=== PATIENT | female | born 1990 | race African-American/Black ===

== ENCOUNTER 2019-06-19 08:21 | Emergency (ER) | payer SELFPAY ==
[2019-06-19 09:17] LABS: Urine Blood TRACE (NEG); Urine Glucose NEGATIVE (NEG); Urine Protein NEGATIVE (NEG); Urine Specific Gravity 1.025 (1.005-1.030); Urine pH 5.5 (5.0-7.0)
[2019-06-19 10:01] LABS: Urine Bacteria LOADED /HPF (<20)
[2019-06-19 10:02] LABS: Urine Culture Reflex Order REFLEXED
--- NOTE | 2019-06-19 10:35 | ER ---
Nurse's Notes [facility] Name: Marva De Santiago Age: 28 yrs Sex: Female : 1990 Arrival Date: 06/19/2019 Time: 08:23 Bed 16 Private MD: Diagnosis: Urinary tract infection, site not specified Presentation: 06/19 08:36 Presenting complaint: Patient states: vaginal pain radiating to rectum X 2 days, sharp, iw intermittent, denies vaginal bleeding or discharge, denies pain or burning with urination. Transition of care: patient was not received from another setting of care. Onset of symptoms was June 17, 2019. Risk Assessment: Do you want to hurt yourself or someone else? Patient reports no desire to harm self or others. Initial Sepsis Screen: Does the patient meet any 2 criteria? No. Patient's initial sepsis screen is negative. Does the patient have a suspected source of infection? No. Patient's initial sepsis screen is negative. Care prior to arrival: None. 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 - Social history:: Smoking status: Patient/guardian denies using tobacco. - Ebola Screening: : Patient negative for fever greater than or equal to 101.5 degrees Fahrenheit, and additional compatible Ebola Virus Disease symptoms Patient denies exposure to infectious person Patient denies travel to an Ebola-affected area in the 21 days before illness onset No symptoms or risks identified at this time. Screenin:33 Abuse screen: Denies threats or abuse. Denies injuries from another. Nutritional hb screening: No deficits noted. Tuberculosis screening: No symptoms or risk factors identified. Fall Risk None identified. Assessment: 08:45 General: Appears in no apparent distress. Behavior is calm, cooperative. Pain: Pain hb currently is 4 out of 10 on a pain scale. Neuro: Level of Consciousness is awake, alert, obeys commands, Oriented to person, place, time, situation. Cardiovascular: Capillary refill < 3 seconds Patient's skin is warm and dry. Respiratory: Airway is patent Respiratory effort is even, unlabored, Respiratory pattern is regular, symmetrical. GI: No signs and/or symptoms were reported involving the gastrointestinal system. : Reports vaginal pain. EENT: No signs and/or symptoms were reported regarding the EENT system. Derm: Skin is intact, is healthy with good turgor. Musculoskeletal: No signs and/or symptoms reported regarding the musculoskeletal system. 09:45 Reassessment: Patient appears in no apparent distress at this time. Patient and/or hb family updated on plan of care and expected duration. Pain level reassessed. Patient is alert, oriented x 3, equal unlabored respirations, skin warm/dry/pink. Patient states symptoms have improved. 10:45 Reassessment: Patient appears in no apparent distress at this time. Patient is alert, ca1 oriented x 3, equal unlabored respirations, skin warm/dry/pink. Pt refused Rocephin IM. Explained benefits of the antibiotic, pt still refused, said she's afraid of shots. Notified provider. Vital Signs: 08:36 BP 125 / 78; Pulse 88; Resp 16; Temp 97.6(TE); Pulse Ox 98% on R/A; Weight 190.51 kg; iw Height 5 ft. 10 in. (177.80 cm); 09:58 BP 134 / 93; Pulse 84; Resp 17 S; Pulse Ox 98% on R/A; ca1 08:36 Body Mass Index 60.26 (190.51 kg, 177.80 cm) iw ED Course: 08:23 Patient arrived in ED. rg4 08:30 Nadeem Verdugo NP is PHCP. pm1 08:30 Philippe Stewart MD is Attending Physician. pm1 08:31 Pari Cai, MAXINE is Primary Nurse. hb 08:33 Arm band placed on. hb 08:37 Triage completed. iw 08:45 Patient has correct armband on for positive identification. Bed in low position. Call hb light in reach. Side rails up X 1. 09:40 Assist provider with pelvic exam:. hb 10:55 Patient did not have IV access during this emergency room visit. ca1 Administered Medications: 10:45 Drug: AZITHromycin 1 grams Route: PO; ca1 10:53 Follow up: Response: Medication administered at discharge. ca1 10:54 Not Given (Patient Refused): Rocephin (cefTRIAXone) 1 grams IM once ca1 Outcome: 10:34 Discharge ordered by MD. pm1 10:55 Discharged to home ambulatory. ca1 10:55 Condition: stable 10:55 Discharge instructions given to patient, Instructed on discharge instructions, follow up and referral plans. medication usage, safe sex practices, Demonstrated understanding of instructions, follow-up care, medications, Prescriptions given X 1. 10:56 Patient left the ED. ca1 Signatures: Gregoria Jacobo, MAXINE RN iw Nadeem Verdugo NP NAPPER TENDER pm1 Pari Cai, RN RN Yasmeen Keyes rg4 Melissa Benítez RN RN ca1
--- NOTE | 2019-06-19 10:35 | EDPHYS ---
Physician Documentation [facility] Name: Marva De Santiago Age: 28 yrs Sex: Female : 1990 Arrival Date: 06/19/2019 Time: 08:23 Bed 16 Private MD: ED Physician Philippe Stewart HPI: 06/19 10:09 This 28 yrs old Black Female presents to ER via Ambulatory with complaints of Vaginal pm1 Pain, Rectal Pain. 10:09 The patient presents with Vaginal pain. Onset: The symptoms/episode began/occurred pm1 yesterday, last occurrence last night. Modifying factors: The symptoms are alleviated by nothing, the symptoms are aggravated by nothing. Associated signs and symptoms: Pertinent negatives: constipation, cramping, dysuria, fever, nausea, vaginal bleeding, vaginal discharge, vomiting. Severity of symptoms: in the emergency department the symptoms have resolved, since last night. The patient is sexually active. The patient's method of control includes nothing. The patient has not experienced similar symptoms in the past. The patient has not recently seen a physician. 10:09 No rectal bleeding or pain with bowel movements. Patient was sitting last night pm1 watching TV and felt a cramping pain in her vaginal area. 10:09 Patient had intercourse last night after vaginal pain without any pain or issues. 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 - Social history:: Smoking status: Patient/guardian denies using tobacco. - Ebola Screening: : Patient negative for fever greater than or equal to 101.5 degrees Fahrenheit, and additional compatible Ebola Virus Disease symptoms Patient denies exposure to infectious person Patient denies travel to an Ebola-affected area in the 21 days before illness onset No symptoms or risks identified at this time. ROS: 16:12 Positive for vaginal pain, Negative for urinary symptoms, flank pain, burning with pm1 urination, vaginal bleeding, vaginal discharge, vaginal itching. 16:12 Constitutional: Negative for fever, chills, and weight loss, Eyes: Negative for injury, pain, redness, and discharge, ENT: Negative for injury, pain, and discharge, Neck: Negative for injury, pain, and swelling, Cardiovascular: Negative for chest pain, palpitations, and edema, Respiratory: Negative for shortness of breath, cough, wheezing, and pleuritic chest pain, Abdomen/GI: Negative for abdominal pain, nausea, vomiting, diarrhea, and constipation, Back: Negative for injury and pain, MS/Extremity: Negative for injury and deformity, Skin: Negative for injury, rash, and discoloration, Neuro: Negative for headache, weakness, numbness, tingling, and seizure. Exam: 10:09 Constitutional: This is a well developed, well nourished patient who is awake, alert, pm1 and in no acute distress. Head/Face: Normocephalic, atraumatic. Neck: Trachea midline, no thyromegaly or masses palpated, and no cervical lymphadenopathy. Supple, full range of motion without nuchal rigidity, or vertebral point tenderness. No Meningismus. Chest/axilla: Normal chest wall appearance and motion. Nontender with no deformity. No lesions are appreciated. Cardiovascular: Regular rate and rhythm with a normal S1 and S2. No gallops, murmurs, or rubs. Normal PMI, no JVD. No pulse deficits. Respiratory: Lungs have equal breath sounds bilaterally, clear to auscultation and percussion. No rales, rhonchi or wheezes noted. No increased work of breathing, no retractions or nasal flaring. 10:09 Back: No spinal tenderness. No costovertebral tenderness. Full range of motion. Skin: Warm, dry with normal turgor. Normal color with no rashes, no lesions, and no evidence of cellulitis. MS/ Extremity: Pulses equal, no cyanosis. Neurovascular intact. Full, normal range of motion. 10:09 Abdomen/GI: Inspection: obese Bowel sounds: normal, Palpation: abdomen is soft and non-tender, in all quadrants, mass, is not appreciated, rebound tenderness, is not appreciated. 10:09 : Pelvic Exam: External exam: is normal, no appreciated Bartholin's cyst, no erythema, not excoriated, no evidence of foreign body, no lesions, no ulcerations, no warts seen, Speculum exam: no bleeding is noted, no cervicitis, no tissue in cervix is seen, no tissue in vagina is seen, bimanual exam reveals no cervical motion tenderness, no uterine tenderness, no adnexa tenderness or masses bilaterally, discharge, Pari bedoya RN. Sexual behavior: the patient is sexually active, method of control is none. 10:09 Neuro: Orientation: is normal, Motor: is normal, moves all fours, Gait: is steady, at a normal pace, without difficulty. Vital Signs: 08:36 BP 125 / 78; Pulse 88; Resp 16; Temp 97.6(TE); Pulse Ox 98% on R/A; Weight 190.51 kg; iw Height 5 ft. 10 in. (177.80 cm); 09:58 BP 134 / 93; Pulse 84; Resp 17 S; Pulse Ox 98% on R/A; ca1 08:36 Body Mass Index 60.26 (190.51 kg, 177.80 cm) iw MDM: 08:39 Patient medically screened. pm1 10:04 Data reviewed: vital signs. Data interpreted: Pulse oximetry: on room air is 98 %. pm1 Interpretation: normal. 10:34 Counseling: I had a detailed discussion with the patient and/or guardian regarding: the pm1 historical points, exam findings, and any diagnostic results supporting the discharge/admit diagnosis, lab results, the need for outpatient follow up, to return to the emergency department if symptoms worsen or persist or if there are any questions or concerns that arise at home. 06/19 08:56 Order name: Urine Microscopic Only; Complete Time: 10:04 hb 06/19 08:58 Order name: Urine Dipstick--Ancillary (enter results); Complete Time: 09:40 bd 06/19 08:58 Order name: Urine --Ancillary (enter results); Complete Time: 09:40 bd 06/19 09:54 Order name: Wet Prep; Complete Time: 10:28 iw 06/19 09:54 Order name: GC Probe iw 06/19 10:05 Order name: Urine Culture EDMS 06/19 08:43 Order name: Pelvic Exam Setup; Complete Time: 09:00 pm1 Administered Medications: 10:45 Drug: AZITHromycin 1 grams Route: PO; ca1 10:53 Follow up: Response: Medication administered at discharge. ca1 10:54 Not Given (Patient Refused): Rocephin (cefTRIAXone) 1 grams IM once ca1 Disposition: 06/20 07:01 Co-signature as Attending Physician, Philippe Stewart MD Did not see or evaluate patient. ps1 Signing chart for administrative purposes. Not an endorsement of care. . Disposition: 06/19/19 10:34 Discharged to Home. Impression: Urinary tract infection, site not specified. - Condition is Stable. - Discharge Instructions: Urinary Tract Infection, Adult. - Prescriptions for Bactrim DS 800- 160 mg Oral Tablet - take 1 tablet by ORAL route every 12 hours for 10 days; 20 tablet. - Medication Reconciliation Form, Thank You Letter, Antibiotic Education, Prescription Opioid Use form. - Follow up: Emergency Department; When: As needed; Reason: Worsening of condition. Follow up: Private Physician; When: 2 - 3 days; Reason: Recheck today's complaints, Continuance of care, Re-evaluation by your physician. - Problem is new. - Symptoms have improved. Signatures: Dispatcher [employer] Gregoria Flores RN RN iw Nadeem Verdugo, SYED E LEARNING MANAGER pm1 Pari Cai RN RN Philippe Stewart MD MD ps1 Melissa Benítez RN RN ca1 Corrections: (The following items were deleted from the chart) 06/19 10:56 10:34 06/19/2019 10:34 Discharged to Home. Impression: Urinary tract infection, site ca1 not specified. Condition is Stable. Forms are Medication Reconciliation Form, Thank You Letter, Antibiotic Education, Prescription Opioid Use. Follow up: Emergency Department; When: As needed; Reason: Worsening of condition. Follow up: Private Physician; When: 2 - 3 days; Reason: Recheck today's complaints, Continuance of care, Re-evaluation by your physician. Problem is new. Symptoms have improved. pm1
[2019-06-19] MEDS ORDERED: CEFTRIAXONE 1000 MG/VIAL ONE (10:45)
[2019-06-19] MEDS ORDERED: LIDOCAINE 1% MPF 2 ML AMPULE ONE (10:45)
[2019-06-19] MEDS ORDERED: AZITHROMYCIN 250 MG TAB ONE (10:45)
[2019-06-19 11:05] VITALS: TEMP 97.6; O2SAT 98
[2019-06-19 11:07] VITALS: BP 134/93
[2019-06-22 05:08] LABS: C.trachomatis RNA,TMA Not Detected (Not Detected)
== END 2019-06-19 10:56 | disposition home or self-care (01) ==
LOC: ER 08:21
DX: N39.0 Urinary tract infection, site not specified (principal)
CPT/HCPCS: 81003; 81015; 81025; 87077; 87086; 87088; 87186; 87210; 87490; 87590; 99283; J2001

== ENCOUNTER 2019-07-21 08:54 | Emergency (ER) | payer SELFPAY ==
[2019-07-21 10:00] LABS: Urine Bacteria >50 /HPF (<20); Urine Culture Reflex Order NOT NEEDED; Urine Mucus 2+ /HPF (NONE SEEN); Urine RBC 20-50 /HPF (NONE SEEN)
[2019-07-21] MEDS ORDERED: CEFTRIAXONE 1000 MG/VIAL ONE (10:09)
[2019-07-21] MEDS ORDERED: LIDOCAINE 1% MPF 2 ML AMPULE ONE (10:09)
--- NOTE | 2019-07-21 10:19 | ER ---
Nurse's Notes [facility] Name: Marva De Santiago Age: 28 yrs Sex: Female : 1990 Arrival Date: 07/21/2019 Time: 08:55 Bed 18 Private MD: None, None Diagnosis: Urinary tract infection, site not specified Presentation: 07/21 09:04 Presenting complaint: Patient states: upper abd pain since yesterday, denies vomiting iw or diarrhea, denies urinary s/s, also woke up this morning withe her lips tingly and swollen, no known allergies. Transition of care: patient was not received from another setting of care. Onset of symptoms was July 20, 2019. Risk Assessment: Do you want to hurt yourself or someone else? Patient reports no desire to harm self or others. Initial Sepsis Screen: Does the patient meet any 2 criteria? No. Patient's initial sepsis screen is negative. Does the patient have a suspected source of infection? No. Patient's initial sepsis screen is negative. Care prior to arrival: None. 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 - Social history:: Smoking status: Patient uses tobacco products, denies chronic smoking, but will smoke occasionally. - Ebola Screening: : Patient negative for fever greater than or equal to 101.5 degrees Fahrenheit, and additional compatible Ebola Virus Disease symptoms Patient denies exposure to infectious person Patient denies travel to an Ebola-affected area in the 21 days before illness onset No symptoms or risks identified at this time. Screenin:28 Abuse screen: Denies threats or abuse. Nutritional screening: No deficits noted. em Tuberculosis screening: No symptoms or risk factors identified. Fall Risk None identified. Assessment: 09:32 General: Appears in no apparent distress. comfortable, Behavior is calm, cooperative, em Denies fever. Pain: Complains of pain in epigastric area Pain currently is 0 out of 10 on a pain scale. Neuro: Level of Consciousness is awake, alert, obeys commands, Oriented to person, place, time, situation, Appropriate for age. Cardiovascular: Capillary refill < 3 seconds Patient's skin is warm and dry. Respiratory: Airway is patent Respiratory effort is even, unlabored, Respiratory pattern is regular, symmetrical. GI: Abdomen is non-distended, obese, Bowel sounds present X 4 quads. Abd is soft X 4 quads Abdomen is tender to palpation in epigastric area Patient currently denies diarrhea, nausea, vomiting. : Denies burning with urination. Derm: Skin is intact, is healthy with good turgor, Skin is pink, warm \T\ dry. Musculoskeletal: Capillary refill < 3 seconds, Range of motion: intact in all extremities. Vital Signs: 09:05 BP 132 / 93; Pulse 89; Resp 16; Temp 97.7; Pulse Ox 100% on R/A; Weight 181.44 kg; iw Height 5 ft. 9 in. (175.26 cm); 10:05 BP 111 / 68; Pulse 90; Resp 17; Temp 98.6(O); Pulse Ox 100% on R/A; mh5 09:05 Body Mass Index 59.07 (181.44 kg, 175.26 cm) iw ED Course: 08:55 Patient arrived in ED. mr 08:56 None, None is Private Physician. mr 09:05 Triage completed. iw 09:05 Arm band placed on. iw 09:07 Tejal [facility]C [facility]. snw 09:07 Joseph Curry MD is Attending Physician. snw 09:15 Jamel Dallas LVN is Primary Nurse. em 09:28 Patient has correct armband on for positive identification. Bed in low position. Call em light in reach. Pulse ox on. NIBP on. 09:28 Urine Culture Sent. mh5 09:28 Urine Microscopic Only Sent. mh5 09:29 Strep Sent. mh5 09:29 Urine collected: clean catch specimen, cloudy, Strep swab sent to lab. mh5 10:26 No provider procedures requiring assistance completed. Patient did not have IV access em during this emergency room visit. Administered Medications: 10:15 Drug: Rocephin (cefTRIAXone) 1 grams Route: IM; Site: right gluteus; em 10:31 Follow up: Response: No adverse reaction em Outcome: 10:18 Discharge ordered by . pee[place]e 10:26 Discharged to home ambulatory. em 10:26 Condition: good 10:26 Discharge instructions given to patient, Instructed on discharge instructions, follow up and referral plans. medication usage, Demonstrated understanding of instructions, follow-up care, medications, Prescriptions given X 2. 10:31 Patient left the ED. em Addendum: 07/25/2019 07:35 Addendum: Culture Results: Positive urine culture. No further action required. Bacteria s s sensitive to prescribed antibiotic. Signatures: Tejal Ji, CENTRIFUGE SEPARATOR TENDER-C CENTRIFUGE SEPARATOR TENDER-Csnw Sabrina Gardner mr Burt, Jamel, NEEDLE CONTROL CHENILLER NEEDLE CONTROL CHENILLER em Gregoria Jacobo, Janae Wolff RN, RN RN ss Martinez, Maria [facility]
--- NOTE | 2019-07-21 10:19 | EDPHYS ---
Physician Documentation [facility] Name: Marva De Santiago Age: 28 yrs Sex: Female : 1990 Arrival Date: 07/21/2019 Time: 08:55 Bed 18 Private MD: None, None ED Physician Joseph Curry HPI: 07/21 10:15 This 28 yrs old Black Female presents to ER via Ambulatory with complaints of Abdominal snw Pain, Rash. 10:15 The patient presents with abdominal pain in the epigastric area. Onset: The snw symptoms/episode began/occurred suddenly, 1 day(s) ago, and became persistent. The symptoms do not radiate. Associated signs and symptoms: Pertinent positives: nausea. The symptoms are described as vague. Severity of pain: At its worst the pain was mild. The patient has not experienced similar symptoms in the past. It is unknown whether or not the patient has recently seen a physician. 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 - Social history:: Smoking status: Patient uses tobacco products, denies chronic smoking, but will smoke occasionally. - Ebola Screening: : Patient negative for fever greater than or equal to 101.5 degrees Fahrenheit, and additional compatible Ebola Virus Disease symptoms Patient denies exposure to infectious person Patient denies travel to an Ebola-affected area in the 21 days before illness onset No symptoms or risks identified at this time. ROS: 10:13 Constitutional: Negative for fever, chills, and weight loss, Eyes: Negative for injury, snw pain, redness, and discharge, ENT: Negative for injury, pain, and discharge, +swollen, chapped lips Neck: Negative for injury, pain, and swelling, Cardiovascular: Negative for chest pain, palpitations, and edema, Respiratory: Negative for shortness of breath, cough, wheezing, and pleuritic chest pain, Abdomen/GI: Negative for abdominal pain, vomiting, diarrhea, and constipation, +nausea Back: Negative for injury and pain, : Negative for injury, bleeding, discharge, and swelling, MS/Extremity: Negative for injury and deformity, Skin: Negative for injury, rash, and discoloration, Neuro: Negative for headache, weakness, numbness, tingling, and seizure. Exam: 10:12 Constitutional: This is a well developed, well nourished patient who is awake, alert, snw and in no acute distress. 10:12 Eyes: Pupils equal round and reactive to light, extra-ocular motions intact. Lids and lashes normal. Conjunctiva and sclera are non-icteric and not injected. Cornea within normal limits. Periorbital areas with no swelling, redness, or edema. ENT: Nares patent. No nasal discharge, no septal abnormalities noted. Tympanic membranes are normal and external auditory canals are clear. Oropharynx with no redness, swelling, or masses, exudates, or evidence of obstruction, uvula midline. Mucous membranes moist. Neck: Trachea midline, no thyromegaly or masses palpated, and no cervical lymphadenopathy. Supple, full range of motion without nuchal rigidity, or vertebral point tenderness. No Meningismus. Chest/axilla: Normal chest wall appearance and motion. Nontender with no deformity. No lesions are appreciated. Cardiovascular: Regular rate and rhythm with a normal S1 and S2. No gallops, murmurs, or rubs. Normal PMI, no JVD. No pulse deficits. Respiratory: Lungs have equal breath sounds bilaterally, clear to auscultation and percussion. No rales, rhonchi or wheezes noted. No increased work of breathing, no retractions or nasal flaring. Back: No spinal tenderness. No costovertebral tenderness. Full range of motion. Skin: Warm, dry with normal turgor. Normal color with no rashes, no lesions, and no evidence of cellulitis. MS/ Extremity: Pulses equal, no cyanosis. Neurovascular intact. Full, normal range of motion. Neuro: Awake and alert, GCS 15, oriented to person, place, time, and situation. Cranial nerves II-XII grossly intact. Motor strength 5/5 in all extremities. Sensory grossly intact. Cerebellar exam normal. Normal gait. 10:12 Head/face: Noted is swelling, that is moderate, of the mouth. 10:12 Abdomen/GI: Inspection: abdomen appears normal, obese Bowel sounds: normal, Palpation: mild abdominal tenderness, in the epigastric area. Vital Signs: 09:05 BP 132 / 93; Pulse 89; Resp 16; Temp 97.7; Pulse Ox 100% on R/A; Weight 181.44 kg; iw Height 5 ft. 9 in. (175.26 cm); 10:05 BP 111 / 68; Pulse 90; Resp 17; Temp 98.6(O); Pulse Ox 100% on R/A; mh5 09:05 Body Mass Index 59.07 (181.44 kg, 175.26 cm) iw MDM: 09:08 Patient medically screened. snw 11:13 Data reviewed: vital signs, nurses notes. Data interpreted: Pulse oximetry: on room air snw is 100 %. Interpretation: normal. Counseling: I had a detailed discussion with the patient and/or guardian regarding: the historical points, exam findings, and any diagnostic results supporting the discharge/admit diagnosis, lab results, the need for outpatient follow up, to return to the emergency department if symptoms worsen or persist or if there are any questions or concerns that arise at home. Special discussion: Based on the history and exam findings, there is no indication for further emergent testing or inpatient evaluation. I discussed with the patient/guardian the need to see the primary care provider for further evaluation of the symptoms. 07/21 09:07 Order name: Urine Culture sn 07/21 09:07 Order name: Urine Microscopic Only snw 07/21 09:07 Order name: Strep snw 07/21 09:29 Order name: Urine Dipstick--Ancillary (enter results) eb 07/21 09:29 Order name: Urine --Ancillary (enter results) eb 07/21 09:45 Order name: Group A Streptococcus Rapid Sc; Complete Time: 09:45 EDMS 07/21 09:07 Order name: Urine Test (obtain specimen); Complete Time: 09:27 snw 07/21 09:07 Order name: Urine Dipstick-Ancillary (obtain specimen); Complete Time: 09:27 snw 07/21 10:10 Order name: Throat Culture EDMS Administered Medications: 10:15 Drug: Rocephin (cefTRIAXone) 1 grams Route: IM; Site: right gluteus; em 10:31 Follow up: Response: No adverse reaction em Disposition: 14:59 Co-signature as Attending Physician, Joseph Curry MD. rn Disposition: 07/21/19 10:18 Discharged to Home. Impression: Urinary tract infection, site not specified. - Condition is Stable. - Discharge Instructions: Urinary Tract Infection, Adult, Rehydration, Adult. - Prescriptions for Augmentin 875- 125 mg Oral Tablet - take 1 tablet by ORAL route every 12 hours for 10 days; 20 tablet. Diclofenac Sodium 75 mg Oral Tablet Sustained Release - take 1 tablet by ORAL route 2 times per day; 30 tablet. - Medication Reconciliation Form, Thank You Letter, Antibiotic Education, Prescription Opioid Use form. - Follow up: Private Physician; When: 2 - 3 days; Reason: Recheck today's complaints, Continuance of care, Re-evaluation by your physician. Follow up: Emergency Department; When: As needed; Reason: Worsening of condition. Signatures: Dispatcher [employer] EDMS Tejal Ji, TOBY SENIOR MORTGAGE UNDERWRITER-Jamel Gonzalez, INDUSTRIAL REAL ESTATE AGENT INDUSTRIAL REAL ESTATE AGENT em Gregoria Jacobo RN RN iw Joseph Curry MD MD mother baby rn: (The following items were deleted from the chart) 10:31 10:18 07/21/2019 10:18 Discharged to Home. Impression: Urinary tract infection, site em not specified. Condition is Stable. Forms are Medication Reconciliation Form, Thank You Letter, Antibiotic Education, Prescription Opioid Use. Follow up: Private Physician; When: 2 - 3 days; Reason: Recheck today's complaints, Continuance of care, Re-evaluation by your physician. Follow up: Emergency Department; When: As needed; Reason: Worsening of condition. snw
[2019-07-21 10:45] VITALS: O2SAT 100
[2019-07-21 10:46] VITALS: BP 111/68; TEMP 98.6
[2019-07-21 10:55] LABS: Urine Blood 3+ (NEG); Urine Glucose NEGATIVE (NEG); Urine Protein 1+ (NEG)
== END 2019-07-21 10:31 | disposition home or self-care (01) ==
LOC: ER 08:54
DX: N39.0 Urinary tract infection, site not specified (principal); Z72.0 Tobacco use
CPT/HCPCS: 81003; 81015; 81025; 87070; 87077; 87081; 87086; 87088; 87186; 96372; 99284; J2001

== ENCOUNTER 2019-08-24 19:35 | Emergency (ER) | payer SELFPAY ==
[2019-08-24] MEDS ORDERED: ONDANSETRON 4 MG (ODT) TAB ONE (21:14)
--- NOTE | 2019-08-24 21:48 | EDPHYS ---
Physician Documentation [facility] Name: Marva De Santiago Age: 28 yrs Sex: Female : 1990 Arrival Date: 08/24/2019 Time: 19:36 Bed 14 Private MD: ED Physician Jere Sarkar HPI: 08/24 21:11 This 28 yrs old Black Female presents to ER via Ambulatory with complaints of Abdominal la1 Pain, Headache. 21:11 The patient presents with abdominal pain in the epigastric area. Onset: The la1 symptoms/episode began/occurred this morning. The symptoms do not radiate. Associated signs and symptoms: Pertinent positives: nausea and vomiting, headache. The symptoms are described as achy. Modifying factors: The symptoms are alleviated by nothing, the symptoms are aggravated by alcohol. Severity of pain: At its worst the pain was mild. The patient has not experienced similar symptoms in the past. coworker ill with similar sx tested + for the flu. 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 - Social history:: Smoking status: Patient reports the use of cigarette tobacco products, denies chronic smoking, but will smoke occasionally. - Ebola Screening: : No symptoms or risks identified at this time. ROS: 21:14 Constitutional: Negative for fever, chills, and weight loss, Eyes: Negative for injury, la1 pain, redness, and discharge, ENT: Negative for injury, pain, and discharge, Neck: Negative for injury, pain, and swelling, Cardiovascular: Negative for chest pain, palpitations, and edema, Respiratory: Negative for shortness of breath, cough, wheezing, and pleuritic chest pain, Abdomen/GI: Negative for abdominal pain, nausea, vomiting, diarrhea, and constipation, Back: Negative for injury and pain, MS/Extremity: Negative for injury and deformity, Skin: Negative for injury, rash, and discoloration, Neuro: Negative for headache, weakness, numbness, tingling, and seizure, Endocrine: Negative for neck swelling, polydipsia, polyuria, polyphagia, and marked weight changes. Exam: 21:15 Constitutional: This is a well developed, well nourished patient who is awake, alert, la1 and in no acute distress. Head/Face: Normocephalic, atraumatic. Eyes: Periorbital areas with no swelling, redness, or edema. ENT: Mucous membranes moist. Neck: Trachea midline, no thyromegaly or masses palpated, and no cervical lymphadenopathy. Supple, full range of motion without nuchal rigidity, or vertebral point tenderness. No Meningismus. Chest/axilla: Normal chest wall appearance and motion. Nontender with no deformity. No lesions are appreciated. Cardiovascular: Regular rate and rhythm with a normal S1 and S2. No gallops, murmurs, or rubs. Normal PMI, no JVD. No pulse deficits. Respiratory: Lungs have equal breath sounds bilaterally, clear to auscultation No rales, rhonchi or wheezes noted. No increased work of breathing, no retractions or nasal flaring. Abdomen/GI: Soft, non-tender, with normal bowel sounds. No distension or tympany. No guarding or rebound. No evidence of tenderness throughout. Back: No spinal tenderness. No costovertebral tenderness. Full range of motion. Skin: Warm, dry with normal turgor. Normal color with no rashes, no lesions, and no evidence of cellulitis. MS/ Extremity: Pulses equal, no cyanosis. Neurovascular intact. Full, normal range of motion. Neuro: Awake and alert, GCS 15, oriented to person, place, time, and situation. Cerebellar exam normal. Normal gait. Vital Signs: 20:05 BP 125 / 92; Pulse 86; Resp 18; Temp 98.2(O); Pulse Ox 100% on R/A; Weight 188.24 kg lp1 (R); Height 5 ft. 9 in. (175.26 cm); Pain 8/10; 21:55 BP 128 / 86; Pulse 78; Resp 18; Temp 97.6(O); Pulse Ox 99% on R/A; ea 20:05 Body Mass Index 61.28 (188.24 kg, 175.26 cm) lp1 MDM: 20:42 Patient medically screened. [facility] 21:46 Data reviewed: vital signs, nurses notes, lab test result(s), and as a result, I will la1 discharge patient. Data interpreted: Pulse oximetry: on room air is 100 %. Interpretation: normal. Counseling: I had a detailed discussion with the patient and/or guardian regarding: the historical points, exam findings, and any diagnostic results supporting the discharge/admit diagnosis, the presence of at least one elevated blood pressure reading (>120/80) during this emergency department visit, lab results, the need for outpatient follow up, a family practitioner, to return to the emergency department if symptoms worsen or persist or if there are any questions or concerns that arise at home. Medication response: Response to treatment: the patient's symptoms have mildly improved after treatment, and as a result, I will discharge patient. Special discussion: Based on the history and exam findings, there is no indication for further emergent testing or inpatient evaluation. I discussed with the patient/guardian the need to see the primary care provider for further evaluation of the symptoms. 08/24 20:56 Order name: Flu la1 08/24 20:56 Order name: Flu ea 08/24 20:56 Order name: Urine Dipstick-Ancillary (obtain specimen); Complete Time: 21:09 la1 08/24 21:16 Order name: Urine Dipstick--Ancillary (enter results) [facility] 08/24 21:16 Order name: Urine --Ancillary (enter results) [facility] 08/24 20:56 Order name: Urine Test (obtain specimen); Complete Time: 21:09 Administered Medications: 21:14 Drug: Zofran 4 mg Route: PO; 21:36 Follow up: Response: No adverse reaction ea Disposition: 08/25 09:21 Co-signature as Attending Physician, Jere Sarkar MD I agree with the assessment and benita plan of care. Disposition: 08/24/19 21:47 Discharged to Home. Impression: Nausea and vomiting, Headache. - Condition is Stable. - Discharge Instructions: Nausea and Vomiting, Adult, General Headache Without Cause, [id number], Rehydration, Adult. - Prescriptions for Zofran 4 mg Oral Tablet - take 1 tablet by ORAL route every 12 hours As needed; 20 tablet. - Medication Reconciliation Form, Thank You Letter, Work release form, Family Work Release form. - Follow up: Private Physician; When: 2 - 3 days; Reason: Recheck today's complaints, Re-evaluation by your physician. - Problem is new. - Symptoms have improved. Signatures: Dispatcher [employer] EDMS Jere Sarkar MD MD cha Pena, Laura, RN RN lp1 Jason Seo, PATRICE-C PROSTHETICS TECHNICIAN-Cla1 Olena Aviles RN RN Darrick Llanos Corrections: (The following items were deleted from the chart) 08/24 22:05 21:47 08/24/2019 21:47 Discharged to Home. Impression: Nausea and vomiting; Headache. ea Condition is Stable. Forms are Medication Reconciliation Form, Thank You Letter, Antibiotic Education, Prescription Opioid Use. Follow up: Private Physician; When: 2 - 3 days; Reason: Recheck today's complaints, Re-evaluation by your physician. Problem is new. Symptoms have improved. la1
--- NOTE | 2019-08-24 21:48 | ER ---
Nurse's Notes [facility] Name: Marva De Santiago Age: 28 yrs Sex: Female : 1990 Arrival Date: 08/24/2019 Time: 19:36 Bed 14 Private MD: Diagnosis: Nausea and vomiting;Headache Presentation: 08/24 20:03 Presenting complaint: Patient states: Headache and lower abdominal pain since this lp1 morning; "I took Tylenol about 4-5 hours ago for the headache, but it's still pounding"; Patient states seeing spots while driving here. Transition of care: patient was not received from another setting of care. Onset of symptoms was August 24, 2019. Risk Assessment: Do you want to hurt yourself or someone else? Patient reports no desire to harm self or others. Initial Sepsis Screen: Does the patient meet any 2 criteria? No. Patient's initial sepsis screen is negative. Does the patient have a suspected source of infection? No. Patient's initial sepsis screen is negative. Care prior to arrival: None. 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 - Social history:: Smoking status: Patient reports the use of cigarette tobacco products, denies chronic smoking, but will smoke occasionally. - Ebola Screening: : No symptoms or risks identified at this time. Screenin:07 Abuse screen: Denies threats or abuse. Denies injuries from another. Nutritional lp1 screening: No deficits noted. Tuberculosis screening: No symptoms or risk factors identified. Assessment: 21:36 General: Appears uncomfortable, Behavior is calm, cooperative, appropriate for age. ea Pain: Denies pain. Neuro: Level of Consciousness is awake, alert, obeys commands, Oriented to person, place, time, situation. Cardiovascular: Patient's skin is warm and dry. Respiratory: Airway is patent Respiratory effort is even, unlabored, Respiratory pattern is regular, symmetrical. GI: Bowel sounds present X 4 quads. Abd is soft and non tender. Derm: Skin is pink, warm \\T\\ dry. 22:03 Reassessment: Patient and/or family updated on plan of care and expected duration. Pain ea level reassessed. Patient is alert, oriented x 3, equal unlabored respirations, skin warm/dry/pink. Discharge instruction given to patient, verbalized the understanding of instruction. Pt left ED ambulatory, tolerating well. Vital Signs: 20:05 BP 125 / 92; Pulse 86; Resp 18; Temp 98.2(O); Pulse Ox 100% on R/A; Weight 188.24 kg lp1 (R); Height 5 ft. 9 in. (175.26 cm); Pain 8/10; 21:55 BP 128 / 86; Pulse 78; Resp 18; Temp 97.6(O); Pulse Ox 99% on R/A; ea 20:05 Body Mass Index 61.28 (188.24 kg, 175.26 cm) lp1 ED Course: 19:36 Patient arrived in ED. cl3 20:05 Triage completed. lp1 20:05 Arm band placed on. lp1 20:33 Jason Se[facility]NP-C [facility] la1 20:34 Jere Sarkar MD is Attending Physician. la1 20:56 Olena Aviles RN is Primary Nurse. ea 21:37 Patient has correct armband on for positive identification. Bed in low position. Call ea light in reach. Side rails up X2. 21:49 No provider procedures requiring assistance completed. Patient did not have IV access ea during this emergency room visit. Administered Medications: 21:14 Drug: Zofran 4 mg Route: PO; 21:36 Follow up: Response: No adverse reaction ea Outcome: 21:47 Discharge ordered by . la1 22:04 Discharged to home ambulatory. ea 22:04 Condition: stable 22:04 Discharge instructions given to patient, Instructed on discharge instructions, follow up and referral plans. medication usage, Demonstrated understanding of instructions, follow-up care, medications, Prescriptions given X 1. 22:05 Patient left the ED. ea Signatures: Anabel Goddard RN RN lp1 Jason Seo FNP-C SPANISH LITERATURE PROFESSOR-[facility]1 Olena Aviles RN RN Darrick Llanos Charde cl3
[2019-08-24 21:55] LABS: Urine Blood NEGATIVE (NEG); Urine Glucose NEGATIVE (NEG); Urine Protein NEGATIVE (NEG); Urine Specific Gravity 1.025 (1.005-1.030)
[2019-08-24 22:18] VITALS: BP 128/86; TEMP 97.6; O2SAT 99
== END 2019-08-24 22:05 | disposition home or self-care (01) ==
LOC: ER 19:35
DX: R51 Headache (principal); R10.13 Epigastric pain; Z72.0 Tobacco use
CPT/HCPCS: 81003; 81025; 87804; 99283

== ENCOUNTER 2020-11-02 22:12 | Emergency (ER) | payer OTHER, SELFPAY ==
--- NOTE | 2020-11-02 23:01 | ER ---
Nurse's Notes [facility] Name: Marva De Santiago Age: 30 yrs Sex: Female : 1990 Arrival Date: 11/02/2020 Time: 22:16 Bed 25 Private MD: Diagnosis: Dental caries Presentation: 11/02 22:33 Chief complaint: Patient states: Having pain in the Left side lower jaw, states the sg tooth in the back on the bottom feels like it is eroded down into my gum. I have been having this pain for a couple days, but tonight its been so much worse and Im not able to get any sleep. Coronavirus screen: Client denies travel out of the [place] in the last 14 days. Ebola Screen: Patient negative for fever greater than or equal to 101.5 degrees Fahrenheit, and additional compatible Ebola Virus Disease symptoms Patient denies exposure to infectious person. Patient denies travel to an Ebola-affected area in the 21 days before illness onset. No symptoms or risks identified at this time. Initial Sepsis Screen: Does the patient meet any 2 criteria? No. Patient's initial sepsis screen is negative. Does the patient have a suspected source of infection? No. Patient's initial sepsis screen is negative. Risk Assessment: Do you want to hurt yourself or someone else? Patient reports no desire to harm self or others. Onset of symptoms was November 02, 2020. Care prior to arrival: None. Mechanism of Injury: No Mechanism of Injury. Transition of care: patient was received from another setting of care (hospital). 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 - Social history:: Smoking status: Patient denies any tobacco usage or history of. Screenin:52 Abuse screen: Denies threats or abuse. Denies injuries from another. Nutritional rr5 screening: No deficits noted. Tuberculosis screening: No symptoms or risk factors identified. Fall Risk None identified. Total Forman Fall Scale indicates No Risk (0-24 pts). Assessment: 22:51 General: Appears in no apparent distress. comfortable, Behavior is calm, cooperative, rr5 appropriate for age. Pain: Complains of pain in lower left third molar Pain currently is 7 out of 10 on a pain scale. Quality of pain is described as aching, Pain began gradually, Is intermittent. Neuro: Level of Consciousness is awake, alert, obeys commands, Oriented to person, place, time. Cardiovascular: Capillary refill < 3 seconds Patient's skin is warm and dry. Respiratory: Airway is patent Respiratory effort is even, unlabored, Respiratory pattern is regular, symmetrical. GI: No signs and/or symptoms were reported involving the gastrointestinal system. : No signs and/or symptoms were reported regarding the genitourinary system. EENT: Dental caries noted in lower left third molar (#17) Reports pain in lower left third molar. Derm: Skin is pink, warm \T\ dry. Musculoskeletal: No signs and/or symptoms reported regarding the musculoskeletal system. Vital Signs: 22:33 BP 137 / 95; Pulse 85; Resp 17; Temp 98; Pulse Ox 99% ; rr5 ED Course: 22:16 Patient arrived in ED. es 22:30 Joseph Edwards RN is Primary Nurse. rr5 22:31 Hugh Reilly MD is Attending Physician. tw4 22:33 Arm band placed on. sg 22:34 Triage completed. sg 22:52 Patient has correct armband on for positive identification. Bed in low position. Call rr5 light in reach. 23:01 No provider procedures requiring assistance completed. Patient did not have IV access rr5 during this emergency room visit. Administered Medications: No medications were administered Outcome: 23:01 Discharge ordered by . tw4 23:01 Medical screen evaluation completed per provider. Patient declined treatment. rr5 23:01 Condition: stable 23:02 Following a medical screening exam, the patient was provided information regarding rr5 alternative care sites and resources available per registration personnel. 23:02 Patient left the ED. rr5 Signatures: Ryley Llanes, RN Margaux Cosme Terrence, MD MD [facility] Joseph Edwards RN RN rr5
--- NOTE | 2020-11-02 23:01 | EDPHYS ---
Physician Documentation [facility] Name: Marva De Santiago Age: 30 yrs Sex: Female : 1990 Arrival Date: 11/02/2020 Time: 22:16 Bed 25 Private MD: ED Physician Hugh Reilly HPI: 11/03 04:17 This 30 yrs old Black Female presents to ER via Ambulatory with complaints of Toothache.tw4 04:17 This 30 yrs old Black Female presents to ER via Ambulatory with complaints of Toothache.tw4 04:17 The patient presents with broken tooth/teeth. The problem is located in the lower left tw4 third molar. Onset: The symptoms/episode began/occurred today. Duration: The symptoms are continuous, and are unchanged since they started. Modifying factors: The symptoms are alleviated by nothing, the symptoms are aggravated by nothing. The patient has not experienced similar symptoms in the past. 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 - Social history:: Smoking status: Patient denies any tobacco usage or history of. ROS: 11/03 04:17 Constitutional: Negative for fever, chills, and weight loss, Eyes: Negative for injury, tw4 pain, redness, and discharge, Cardiovascular: Negative for chest pain, palpitations, and edema, Respiratory: Negative for shortness of breath, cough, wheezing, and pleuritic chest pain, Abdomen/GI: Negative for abdominal pain, nausea, vomiting, diarrhea, and constipation, Back: Negative for injury and pain, MS/Extremity: Negative for injury and deformity, Skin: Negative for injury, rash, and discoloration. ENT: Positive for Teeth pain Exam: 04:17 Constitutional: This is a well developed, well nourished patient who is awake, alert, tw4 and in no acute distress. Head/Face: Normocephalic, atraumatic. 04:17 ENT: Dental exam: dental caries, that is moderate, specifically in the lower left third molar (#17) and lower left second molar (#18), fractured teeth are noted, specifically the lower left third molar (#17). Vital Signs: 11/02 22:33 BP 137 / 95; Pulse 85; Resp 17; Temp 98; Pulse Ox 99% ; rr5 MDM: 23:00 Medical screen evaluation completed. EMTALA emergency medical condition absent. tw4 23:01 Patient medically screened. tw4 11/03 04:17 Data reviewed: vital signs, nurses notes. Counseling: I had a detailed discussion with tw the patient and/or guardian regarding: the historical points, exam findings, and any diagnostic results supporting the discharge/admit diagnosis. Special discussion: I discussed with the patient/guardian in detail that at this point there is no indication for admission to the hospital. It is understood, however, that if the symptoms persist or worsen the patient needs to return immediately for re-evaluation. Administered Medications: No medications were administered Disposition: 11/02/20 23:01 Discharged to Home. Impression: Dental caries. - Condition is Stable. - Medication Reconciliation Form, Thank You Letter, Antibiotic Education, Prescription Opioid Use form. - Follow up: Private Physician; When: Upon discharge from the Emergency Department; Reason: Recheck today's complaints, Continuance of care, Re-evaluation by your physician. - Problem is an ongoing problem. - Symptoms are unchanged. Signatures: Ryley Llanes RN RN Hugh Reilly MD MD tw4 Joseph Edwards RN RN rr5 Corrections: (The following items were deleted from the chart) 11/02 23:02 23:01 11/02/2020 23:01 Discharged to Home. Impression: Dental caries. Condition is rr5 Stable. Forms are Medication Reconciliation Form, Thank You Letter, Antibiotic Education, Prescription Opioid Use. Follow up: Private Physician; When: Upon discharge from the Emergency Department; Reason: Recheck today's complaints, Continuance of care, Re-evaluation by your physician. Problem is an ongoing problem. Symptoms are unchanged. tw4
[2020-11-03 01:45] VITALS: BP 137/95; TEMP 98; O2SAT 99
== END 2020-11-02 23:02 | disposition home or self-care (01) ==
LOC: ER 22:12
DX: K02.9 Dental caries, unspecified (principal)
CPT/HCPCS: 99281

== ENCOUNTER 2020-12-15 13:29 | Emergency (ER) | payer OTHER ==
--- NOTE | 2020-12-15 17:19 | RAD REPORT ---
EXAM DESCRIPTION: CT - Head Brain Wo Cont - 12/15/2020 5:10 pm CLINICAL HISTORY: HEADACHE COMPARISON: No comparisons TECHNIQUE: Axial 5 mm thick images of the head were obtained without IV contrast. All CT scans are performed using dose optimization technique as appropriate and may include automated exposure control or mA/KV adjustment according to patient size. FINDINGS: No intracranial hemorrhage, mass, edema or shift of mid-line structures. No acute infarcti on changes seen. No abnormal extra-axial fluid collections. Ventricles are normal. Mastoid air cells and visualized portions of the paranasal sinuses are clear. No acute bony findings. IMPRESSION: Negative non-contrast CT head examination.
[2020-12-15 17:20] LABS: Basophils % 0.6 % (0-1.3); Lymphocytes % 27.1 % (15.3-44.8); MPV 8.5 fL (7.6-11.3); RBC Red Blood Cell Count 4.13 M/uL (3.86-4.86)
[2020-12-15 17:27] LABS: ALT/SGPT 15 U/L (12-78); AST/SGOT 6 U/L (15-37); Albumin 3.4 g/dL (3.4-5.0); Alkaline Phosphatase 54 U/L (45-117); BUN Blood Urea Nitrogen 9 mg/dL (7-18); Bicarbonate 27 mmol/L (21-32); Bilirubin Direct < 0.1 mg/dL (0-0.2); Bilirubin Total 0.2 mg/dL (0.2-1.0); Glucose Level 74 mg/dL (74-106); Lipase 81 U/L (73-393); Potassium 3.5 mmol/L (3.5-5.1); Protein, Total 7.6 g/dL (6.4-8.2); Sodium Level 140 mmol/L (136-145)
[2020-12-15 18:03] LABS: Urine Blood 2+ (Negative); Urine Glucose Negative (Negative); Urine Protein Negative (Negative); Urine Specific Gravity 1.025 (1.005-1.030)
[2020-12-15] MEDS ORDERED: METOCLOPRAMIDE 10 MG/2mL INJ ONE (18:23)
[2020-12-15] MEDS ORDERED: NA CHLORIDE 0.9% 1,000 ML ONE (18:24)
[2020-12-15] MEDS ORDERED: DIPHENHYDRAMINE 50 MG/ML VIAL ONE (18:24)
[2020-12-15] MEDS ORDERED: KETOROLAC 30 MG/ML INJ ONE (18:24)
--- NOTE | 2020-12-15 18:35 | EDPHYS ---
Physician Documentation [facility] Name: Marva De Santiago Age: 30 yrs Sex: Female : 1990 Arrival Date: 12/15/2020 Time: 13:33 Bed 16 Private MD: ED Physician Gayle Bedoya HPI: 12/15 16:48 This 30 yrs old Black Female presents to ER via Ambulatory with complaints of Headache, ma2 Nausea. 16:48 The patient complains of pain to the forehead. Onset: The symptoms/episode ma2 began/occurred gradually, 6 day(s) ago. Associated signs and symptoms: Pertinent negatives: altered mental status, nausea, neck stiffness, Photophobia sinus congestion, vision loss, weakness. Severity of symptoms: At its worst the pain was moderate, in the emergency department the pain is unchanged. Headache History: Denies prior headaches. Headache History: The patient has had previous headaches and this one is similar to previous episodes. The patient has experienced similar episodes in the past. 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 Flu vaccine is not up to date. - Social history:: Smoking status: Reported history of juuling and/or vaping. Patient/guardian denies using alcohol, street drugs, The patient lives with family. - Family history:: not pertinent. ROS: 16:48 Constitutional: Negative for fever, chills, and weight loss. ma2 16:48 All other systems are negative. Exam: 16:48 Constitutional: This is a well developed, well nourished patient who is awake, alert, ma2 and in no acute distress. Head/Face: Normocephalic, atraumatic. Eyes: Pupils equal round and reactive to light, extra-ocular motions intact. Lids and lashes normal. Conjunctiva and sclera are non-icteric and not injected. Cornea within normal limits. Periorbital areas with no swelling, redness, or edema. ENT: Nares patent. No nasal discharge, no septal abnormalities noted. Tympanic membranes are normal and external auditory canals are clear. Oropharynx with no redness, swelling, or masses, exudates, or evidence of obstruction, uvula midline. Mucous membranes moist. Neck: Trachea midline, no thyromegaly or masses palpated, and no cervical lymphadenopathy. Supple, full range of motion without nuchal rigidity, or vertebral point tenderness. No Meningismus. Chest/axilla: Normal chest wall appearance and motion. Nontender with no deformity. No lesions are appreciated. Cardiovascular: Regular rate and rhythm with a normal S1 and S2. No gallops, murmurs, or rubs. Normal PMI, no JVD. No pulse deficits. Respiratory: Lungs have equal breath sounds bilaterally, clear to auscultation and percussion. No rales, rhonchi or wheezes noted. No increased work of breathing, no retractions or nasal flaring. Abdomen/GI: Soft, non-tender, with normal bowel sounds. No distension or tympany. No guarding or rebound. No evidence of tenderness throughout. Back: No spinal tenderness. No costovertebral tenderness. Full range of motion. Skin: Warm, dry with normal turgor. Normal color with no rashes, no lesions, and no evidence of cellulitis. MS/ Extremity: Pulses equal, no cyanosis. Neurovascular intact. Full, normal range of motion. Neuro: Awake and alert, GCS 15, oriented to person, place, time, and situation. Cranial nerves II-XII grossly intact. Motor strength 5/5 in all extremities. Sensory grossly intact. Cerebellar exam normal. Normal gait. Vital Signs: 14:22 BP 129 / 73; Pulse 88; Resp 16 S; Temp 97.6(TE); Pulse Ox 100% on R/A; Height 5 ft. 9 ca1 in. (175.26 cm) (R); Pain 8/10; MDM: 16:45 Patient medically screened. ma2 16:48 Differential diagnosis: hyponatremia, migraine, sinusitis, tension headache. ma2 18:33 Data reviewed: vital signs, nurses notes. Counseling: I had a detailed discussion with ma2 the patient and/or guardian regarding: the historical points, exam findings, and any diagnostic results supporting the discharge/admit diagnosis, the presence of at least one elevated blood pressure reading (>120/80) during this emergency department visit, the need for outpatient follow up. Response to treatment: the patient's symptoms have resolved after treatment. 12/15 16:47 Order name: Basic Metabolic Panel; Complete Time: 17:35 ma2 12/15 16:47 Order name: CBC with Diff; Complete Time: 17:35 ma2 12/15 16:47 Order name: Hepatic Function; Complete Time: 17:35 ma2 12/15 16:47 Order name: Lipase; Complete Time: 17:35 ma2 12/15 18:03 Order name: Urine Dipstick-Ancillary; Complete Time: 18:23 EDMS 12/15 18:03 Order name: Urine --Ancillary (enter results) em1 12/15 16:47 Order name: IV Saline Lock; Complete Time: 17:05 ma2 12/15 16:47 Order name: Labs collected and sent; Complete Time: 17:05 ma2 12/15 16:47 Order name: CT Head Brain wo Cont; Complete Time: 17:35 ma2 12/15 16:47 Order name: Urine Dipstick-Ancillary (obtain specimen); Complete Time: 18:01 ma2 12/15 16:47 Order name: Urine Test (obtain specimen); Complete Time: 18:01 ma2 Administered Medications: 18:23 Drug: TORadol (ketorolac) 30 mg Route: IVP; Site: right antecubital; tr6 18:24 Drug: NS 0.9% 1000 ml Route: IV; Rate: 1 bolus; Site: right antecubital; tr6 18:24 Drug: Reglan (metoCLOPramide) 10 mg Route: IVP; Site: right antecubital; tr6 18:24 Drug: Benadryl (diphenhydrAMINE) 25 mg Route: IVP; Site: right antecubital; tr6 18:41 Drug: Rocephin (cefTRIAXone) 1 grams Route: IV; Rate: calculated rate; Site: right tr6 antecubital; Disposition: 12/15/20 18:34 Discharged to Home. Impression: Cystitis, unspecified without hematuria. - Condition is Stable. - Discharge Instructions: Urinary Tract Infection, Adult. - Prescriptions for Reglan 10 mg Oral Tablet - take 1 tablet by ORAL route every 6 hours . take 30 minutes before meals and at bedtime; 100 tablet. Diclofenac Sodium 75 mg Oral Tablet Sustained Release - take 1 tablet by ORAL route 2 times per day; 30 tablet. Cipro 500 mg Oral Tablet - take 1 tablet by ORAL route every 12 hours for 7 days; 14 tablet. - Medication Reconciliation Form, Thank You Letter, Antibiotic Education, Prescription Opioid Use form. - Work release form (12/16/20 11:19). sv - Follow up: Private Physician; When: Tomorrow; Reason: Continuance of care. Signatures: Dispatcher [employer] EDNJ Lakshmi De Santiago RN RN aj1 Gayle Bedoya MD MD ma2 Melissa Benítez RN RN ca1 Beverly Tello RN RN tr6 Ronda Woody RN sv Corrections: (The following items were deleted from the chart) 19:45 18:34 12/15/2020 18:34 Discharged to Home. Impression: Cystitis, unspecified without aj1 hematuria. Condition is Stable. Prescriptions for Reglan 10 mg Oral Tablet - take 1 tablet by ORAL route every 6 hours . take 30 minutes before meals and at bedtime; 100 tablet, Diclofenac Sodium 75 mg Oral Tablet Sustained Release - take 1 tablet by ORAL route 2 times per day; 30 tablet, Cipro 500 mg Oral Tablet - take 1 tablet by ORAL route every 12 hours for 7 days; 14 tablet. and Forms are Medication Reconciliation Form, Thank You Letter, Antibiotic Education, Prescription Opioid Use. Follow up: Private Physician; When: Tomorrow; Reason: Continuance of care. ma2
--- NOTE | 2020-12-15 18:35 | ER ---
Nurse's Notes [facility] Name: Marva De Santiago Age: 30 yrs Sex: Female : 1990 Arrival Date: 12/15/2020 Time: 13:33 Bed 16 Private MD: Diagnosis: Cystitis, unspecified without hematuria Presentation: 12/15 14:22 Chief complaint: Patient states: Headache x 3 - 4 days. Denies HX of migraines. Reports ca1 nausea with headaches. Coronavirus screen: Client denies travel out of the [place] in the last 14 days. headache, Client presents with at least one sign or symptom that may indicate coronavirus-19. Standard/surgical mask placed on the client. Provider contacted for isolation considerations. Ebola Screen: Patient negative for fever greater than or equal to 101.5 degrees Fahrenheit, and additional compatible Ebola Virus Disease symptoms Patient denies exposure to infectious person. Patient denies travel to an Ebola-affected area in the 21 days before illness onset. No symptoms or risks identified at this time. Initial Sepsis Screen: Does the patient meet any 2 criteria? No. Patient's initial sepsis screen is negative. Does the patient have a suspected source of infection? No. Patient's initial sepsis screen is negative. Risk Assessment: Do you want to hurt yourself or someone else? Patient reports no desire to harm self or others. Onset of symptoms was December 15, 2020. 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 Flu vaccine is not up to date. - Social history:: Smoking status: Reported history of juuling and/or vaping. Patient/guardian denies using alcohol, street drugs, The patient lives with family. - Family history:: not pertinent. Vital Signs: 14:22 BP 129 / 73; Pulse 88; Resp 16 S; Temp 97.6(TE); Pulse Ox 100% on R/A; Height 5 ft. 9 ca1 in. (175.26 cm) (R); Pain 8/10; ED Course: 13:33 Patient arrived in ED. as 14:23 Triage completed. ca1 14:24 Arm band placed on right wrist. ca1 16:40 Gayle Bedoya MD is Attending Physician. ma2 16:47 Beverly Tello RN is Primary Nurse. tr6 17:05 Inserted saline lock: 20 gauge in right antecubital area, using aseptic technique. 4 Blood collected. Missed attempt(s): 20 gauge in left antecubital area. 17:09 CT Head Brain wo Cont In Process Unspecified. EDMS 19:18 Primary Nurse role handed off by Beverly Tello, MAXINE mw2 19:43 IV discontinued, intact, bleeding controlled, No redness/swelling at site. Pressure aj1 dressing applied. 19:44 Report received from MAXINE Paul. aj1 Administered Medications: 18:23 Drug: TORadol (ketorolac) 30 mg Route: IVP; Site: right antecubital; tr6 18:24 Drug: NS 0.9% 1000 ml Route: IV; Rate: 1 bolus; Site: right antecubital; tr6 18:24 Drug: Reglan (metoCLOPramide) 10 mg Route: IVP; Site: right antecubital; tr6 18:24 Drug: Benadryl (diphenhydrAMINE) 25 mg Route: IVP; Site: right antecubital; tr6 18:41 Drug: Rocephin (cefTRIAXone) 1 grams Route: IV; Rate: calculated rate; Site: right tr6 antecubital; Outcome: 18:34 Discharge ordered by . ma2 19:45 Discharged to home ambulatory. aj1 19:45 Condition: good 19:45 Discharge instructions given to patient, Instructed on discharge instructions, follow up and referral plans. medication usage, Demonstrated understanding of instructions, follow-up care, medications, Prescriptions given X 1. 19:45 Patient left the ED. aj1 Signatures: Dispatcher [employer] EDMS Lakshmi De Santiago RN RN aj1 Sona Perez Mohammad, MD MD in2 Anne Greene 2 Melissa Benítez RN RN ca1 Terry Ibarra 4 Ramnanan, Beverly, RN RN tr6 Corrections: (The following items were deleted from the chart) 14:24 14:22 Chief complaint: Patient states: Headache x 3 - 4 days. Denies HX of migraines ca1ca1
[2020-12-15 18:45] LABS: Urine Specific Gravity/Preg 1.025 (1.005-1.030)
[2020-12-15] MEDS ORDERED: CEFTRIAXONE 1000 MG/VIAL ONE (18:55)
[2020-12-15 19:50] VITALS: BP 129/73; TEMP 97.6; O2SAT 100
== END 2020-12-15 19:45 | disposition home or self-care (01) ==
LOC: ER 13:29
DX: N30.90 Cystitis, unspecified without hematuria (principal)
CPT/HCPCS: 85025; 80048; 36415; 81025; 80076; 81003; 83690; 70450; 96375; 96374; 99284; J2765; J1200; J7030

== ENCOUNTER 2021-06-06 16:58 | Emergency (ER) | payer OTHER ==
[2021-06-06 17:56] LABS: Basophils % 0.8 % (0-1.3); Hematocrit 30.2 % (36.0-45.0); Lymphocytes % 27.3 % (15.3-44.8); MPV 7.7 fL (7.6-11.3); RBC Red Blood Cell Count 3.86 M/uL (3.86-4.86)
[2021-06-06 17:59] LABS: Protime INR 1.16
--- NOTE | 2021-06-06 18:02 | RAD REPORT ---
EXAM DESCRIPTION: RAD - Chest Single View - 06/06/2021 5:55 pm CLINICAL HISTORY: CHEST PAIN COMPARISON: No comparisons FINDINGS: Lines: None. Lungs: No evidence of edema or pneumonia. Pleural: No significant pleural effusions or pneumothorax. Cardiac: Mild cardiomegaly. Bones: No acute fractures. Other: IMPRESSION: No acute cardiopulmonary disease.
[2021-06-06 18:15] LABS: ALT/SGPT 20 U/L (12-78); AST/SGOT 13 U/L (15-37); Albumin 3.4 g/dL (3.4-5.0); Alkaline Phosphatase 48 U/L (45-117); BUN Blood Urea Nitrogen 14 mg/dL (7-18); Bicarbonate 27 mmol/L (21-32); Bilirubin Direct < 0.1 mg/dL (0-0.2); Bilirubin Total 0.2 mg/dL (0.2-1.0); Glucose Level 77 mg/dL (74-106); NT PRO-BNP 50 pg/mL (<125); Potassium 3.9 mmol/L (3.5-5.1); Protein, Total 7.3 g/dL (6.4-8.2); Sodium Level 141 mmol/L (136-145); Troponin (Emerg Dept Use Only) < 0.02 ng/mL (0.0-0.045)
[2021-06-06 18:23] LABS: Urine Blood Negative (Negative); Urine Glucose Negative (Negative); Urine Protein Negative (Negative); Urine Specific Gravity 1.025 (1.005-1.030); Urine pH 6.5 (5.0-7.0)
[2021-06-06] MEDS ORDERED: KETOROLAC 30 MG/ML INJ ONE (18:23)
[2021-06-06] MEDS ORDERED: NA CHLORIDE 0.9% 500 ML ONE (18:23)
[2021-06-06 18:38] LABS: Urine Specific Gravity/Preg 1.025 (1.005-1.030)
--- NOTE | 2021-06-06 19:56 | EDPHYS ---
Physician Documentation [facility] Name: Marva De Santiago Age: 30 yrs Sex: Female : 1990 Arrival Date: 06/06/2021 Time: 17:04 Bed 15 Private MD: ED Physician Joseph Curry HPI: 06/06 17:45 This 30 yrs old Black Female presents to ER via Ambulatory with complaints of Chest cp Pain. 17:45 The patient or guardian reports chest pain that is located primarily in the anterior cp chest wall, right. 17:45 The pain does not radiate. cp 17:45 Associated signs and symptoms: Pertinent negatives: abdominal pain, cough, diaphoresis, cp dizziness, lower extremity pain, lower extremity swelling, shortness of breath, syncope, vomiting. The chest pain is described as aching. Duration: The patient or guardian reports a single episode, that is still ongoing, and unchanged. Patient reports pain started 3-4 days. 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 - Social history:: Smoking status: Reported history of juuling and/or vaping. ROS: 17:50 Constitutional: Negative for body aches, chills, fever, poor PO intake. cp 17:50 Eyes: Negative for injury, pain, redness, and discharge. cp 17:50 Cardiovascular: Positive for chest pain, Negative for edema, palpitations. 17:50 Respiratory: Negative for cough, shortness of breath, wheezing. 17:50 Abdomen/GI: Negative for abdominal pain, nausea, vomiting, and diarrhea, constipation. 17:50 Back: Negative for pain at rest, pain with movement, radiated pain. 17:50 Neuro: Negative for altered mental status, dizziness, headache, syncope, weakness. cp 17:50 All other systems are negative. cp Exam: 17:55 Constitutional: The patient appears in no acute distress, alert, awake, cp non-diaphoretic, non-toxic, well developed, well nourished, obese. 17:55 Head/Face: Normocephalic, atraumatic. cp 17:55 Eyes: Periorbital structures: appear normal, Conjunctiva: normal, no exudate, no cp injection, Sclera: no appreciated abnormality, Lids and lashes: appear normal, bilaterally. 17:55 ENT: External ear(s): are unremarkable, Nose: is normal, Mouth: Lips: moist, Oral cp mucosa: moist, Posterior pharynx: Airway: no evidence of obstruction, patent. 17:55 Neck: ROM/movement: is normal, is supple, without pain, no range of motions limitations. 17:55 Chest/axilla: Inspection: normal, Palpation: crepitus, is not appreciated, tenderness, that is mild, of the anterior aspect of right upper chest. 17:55 Cardiovascular: Rate: normal, Rhythm: regular, Heart sounds: murmur, not appreciated, Edema: is not appreciated, JVD: is not appreciated. 17:55 Respiratory: the patient does not display signs of respiratory distress, Respirations: normal, no use of accessory muscles, no retractions, labored breathing, is not present, Breath sounds: are clear throughout, no decreased breath sounds, no stridor, no wheezing. 17:55 Abdomen/GI: Exam negative for discomfort, distension, guarding, Inspection: obese 17:55 Back: pain, is absent, ROM is normal. 17:55 Neuro: Orientation: to person, place \T\ time. Mentation: is normal, Motor: moves all fours, strength is normal, Sensation: is normal. 18:25 ECG was reviewed by the Attending Physician. cp Vital Signs: 17:16 BP 134 / 88; Pulse 88; Resp 16; Temp 97.7(TE); Pulse Ox 100% on R/A; Weight 174.18 kg; ss Height 5 ft. 9 in. (175.26 cm); Pain 8/10; 19:05 BP 124 / 90; Pulse 63; Resp 17; Pulse Ox 99% on R/A; Pain 0/10; dc2 17:16 Body Mass Index 56.71 (174.18 kg, 175.26 cm) ss MDM: 17:34 Patient medically screened. cp 19:55 Data reviewed: vital signs, nurses notes, lab test result(s), EKG, radiologic studies, cp plain films. 19:55 Differential diagnosis: abnormal EKG, acute myocardial infarction, acute pericarditis, cp anxiety, chest wall pain, cholecystitis, Cholelithiasis costochondritis, pericarditis, pleurisy, pneumonia, pneumothorax, pulmonary embolus. Test interpretation: by ED physician or midlevel provider: ECG, plain radiologic studies. Counseling: I had a detailed discussion with the patient and/or guardian regarding: the historical points, exam findings, and any diagnostic results supporting the discharge/admit diagnosis, lab results, radiology results, the need for outpatient follow up, a family practitioner, to return to the emergency department if symptoms worsen or persist or if there are any questions or concerns that arise at home. Special discussion: Based on the patient's history, exam, and Dx evaluation, there is no indication for emergent intervention or inpatient Tx. It is understood by the patient/guardian that if the Sx's persist or worsen they need to return immediately for re-evaluation. 06/06 17:36 Order name: Basic Metabolic Panel; Complete Time: 18:47 cp 06/06 17:36 Order name: CBC with Diff; Complete Time: 18:47 cp 06/06 18:47 Interpretation: Normal except: HGB 9.6; HCT 30.2; MCV 78.2; MCH 24.8; MCHC 31.8; RDW cp 15.5. 06/06 17:36 Order name: LFT's; Complete Time: 18:47 cp 06/06 17:36 Order name: Magnesium; Complete Time: 18:47 cp 06/06 17:36 Order name: NT PRO-BNP; Complete Time: 18:47 cp 06/06 17:36 Order name: PT-INR; Complete Time: 18:47 cp 06/06 17:36 Order name: Troponin (emerg Dept Use Only); Complete Time: 18:47 cp 06/06 18:48 Interpretation: TROPED < 0.02; Reviewed. cp 06/06 17:36 Order name: XRAY Chest (1 view); Complete Time: 18:47 cp 06/06 17:36 Order name: EKG; Complete Time: 17:37 cp 06/06 18:22 Order name: Urine Dipstick-Ancillary; Complete Time: 18:47 EDMS 06/06 18:27 Order name: Urine --Ancillary (enter results); Complete Time: 18:47 tt3 06/06 17:36 Order name: Cardiac monitoring; Complete Time: 17:46 cp 06/06 17:36 Order name: EKG - Nurse/Tech; Complete Time: 18:25 cp 06/06 17:36 Order name: IV Saline Lock; Complete Time: 17:46 cp 06/06 17:36 Order name: Labs collected and sent; Complete Time: 17:46 cp 06/06 17:36 Order name: O2 Per Protocol; Complete Time: 17:46 cp 06/06 17:36 Order name: O2 Sat Monitoring; Complete Time: 17:46 cp 06/06 17:36 Order name: Urine Dipstick-Ancillary (obtain specimen); Complete Time: 18:25 cp 06/06 17:36 Order name: Urine Test (obtain specimen); Complete Time: 18:25 cp EC:25 Rate is 73 beats/min. Rhythm is regular. UT interval is normal. QRS interval is normal. cp QT interval is normal. T waves are Inverted in lead aVR. Interpreted by me. Reviewed by me. Administered Medications: 18:34 Drug: Ketorolac 15 mg Route: IVP; Site: right antecubital; jt3 19:10 Follow up: Response: Pain is decreased dc2 18:34 Drug: NS 0.9% 500 ml Route: IV; Rate: 500 ml/hr; Site: right antecubital; jt3 20:02 Follow up: IV Status: Completed infusion; IV Intake: 500ml dc2 Disposition: 23:50 Co-signature as Attending Physician, Joseph Curry MD I agree with the assessment and rn plan of care. Attestation: The patient's history, exam findings, diagnostics, and a summary of any interventions or procedures was reviewed in detail with Jere LEE. Disposition Summary: 06/06/21 19:55 Discharge Ordered Location: Home cp Problem: new cp Symptoms: have improved cp Condition: Stable cp Diagnosis - Chest pain, unspecified cp Followup: cp - With: Private Physician - When: 2 - 3 days - Reason: Recheck today's complaints Discharge Instructions: - Discharge Summary Sheet cp - Nonspecific Chest Pain, Adult cp - Aspirin and Your Heart cp Forms: - Medication Reconciliation Form cp - Thank You Letter cp - Antibiotic Education cp - Prescription Opioid Use cp Prescriptions: - Diclofenac Sodium 75 mg Oral tablet,delayed release (DR/EC) - take 1 tablet by ORAL route 2 times per day; 20 tablet; Refills: 0, Product cp Selection Permitted Signatures: Dispatcher [employer] Joseph Prasad MD MD rn Smirch, Shelby RN RN Jere Almodovar PA PA cp Tejchma, Jordan, RN RN jt3 Maryan Bowden RN dc2
--- NOTE | 2021-06-06 19:56 | ER ---
Nurse's Notes [facility] Name: Marva De Santiago Age: 30 yrs Sex: Female : 1990 Arrival Date: 06/06/2021 Time: 17:04 Bed 15 Private MD: Diagnosis: Chest pain, unspecified Presentation: 06/06 17:16 Chief complaint: Patient states: episodic chest pain that began 3-4 days ago. Denies ss cough/ fever. Coronavirus screen: Client denies travel out of the [place] in the last 14 days. Ebola Screen: Patient denies exposure to infectious person. Patient denies travel to an Ebola-affected area in the 21 days before illness onset. Initial Sepsis Screen: Does the patient meet any 2 criteria? No. Patient's initial sepsis screen is negative. Does the patient have a suspected source of infection? No. Patient's initial sepsis screen is negative. Risk Assessment: Do you want to hurt yourself or someone else? Patient reports no desire to harm self or others. Onset of symptoms was June 02, 2021. 17:16 Method Of Arrival: Ambulatory ss 17:16 Acuity: NORBERT 3 ss ECONOMIC ANALYSIS DIRECTOR: 17:19 LMP 05/23/2021 ss Historical: - Allergies: 17:19 No Known Allergies; ss - Home Meds: 17:19 None [Active]; ss - PMHx: 17:19 None; ss - PSHx: 17:19 section; ss - Immunization history:: Client reports receiving the 2nd dose of the Covid vaccine. - Social history:: Smoking status: Reported history of juuling and/or vaping. Screenin:07 Abuse screen: Denies threats or abuse. Denies injuries from another. Nutritional jt3 screening: No deficits noted. Tuberculosis screening: No symptoms or risk factors identified. Fall Risk None identified. Assessment: 18:07 General: Appears in no apparent distress. Behavior is calm, cooperative. Pain: jt3 Complains of pain in chest Pain does not radiate. Pain currently is 4 out of 10 on a pain scale. Quality of pain is described as sharp, Pain began 2-3 days ago. Cardiovascular: Reports chest pain, Pt. reports chest pain for the last 3-4 days. Denies SOB. Pt. states the pain comes and goes. Alert and oriented x4. Denies using any medications. Respiratory: No deficits noted. Vital Signs: 17:16 BP 134 / 88; Pulse 88; Resp 16; Temp 97.7(TE); Pulse Ox 100% on R/A; Weight 174.18 kg; ss Height 5 ft. 9 in. (175.26 cm); Pain 8/10; 19:05 BP 124 / 90; Pulse 63; Resp 17; Pulse Ox 99% on R/A; Pain 0/10; dc2 17:16 Body Mass Index 56.71 (174.18 kg, 175.26 cm) ED Course: 17:04 Patient arrived in ED. mr 17:19 Triage completed. ss 17:19 Arm band placed on left wrist. 17:28 Oziel Malagon, MAXINE is Primary Nurse. jt3 17:32 Jere Carpenter PA is PHCP. cp 17:32 Gayle Bedoya MD is Attending Physician. cp 17:56 XRAY Chest (1 view) In Process Unspecified. EDMS 18:07 Patient has correct armband on for positive identification. Bed in low position. Call jt3 light in reach. Side rails up X2. equipment monitor phototypesetting on. Pulse ox on. 18:07 No provider procedures requiring assistance completed. Inserted saline lock: 20 gauge jt3 in right antecubital area, using aseptic technique. Patient maintains SpO2 saturation greater than 95% on room air. 19:05 Patient has correct armband on for positive identification. Bed in low position. Call dc2 light in reach. Side rails up X 1. equipment monitor phototypesetting on. Pulse ox on. NIBP on. Door closed. Lights dimmed. Pt playing on [employer], denies pain, sob or discomfort at present, call light within reach, in nad. . 19:48 Attending Physician role handed off by Gayle Bedoya MD rn 19:48 Joseph Curry MD is Attending Physician. rn 19:51 Nurse Practitioner and/or Physician Mill Crane Operator to see patient. dc2 20:02 IV discontinued, intact, bleeding controlled, No redness/swelling at site. Pressure dc2 dressing applied. Administered Medications: 18:34 Drug: Ketorolac 15 mg Route: IVP; Site: right antecubital; jt3 19:10 Follow up: Response: Pain is decreased dc2 18:34 Drug: NS 0.9% 500 ml Route: IV; Rate: 500 ml/hr; Site: right antecubital; jt3 20:02 Follow up: IV Status: Completed infusion; IV Intake: 500ml dc2 Intake: 20:02 IV: 500ml; Total: 500ml. dc2 Outcome: 19:55 Discharge ordered by . cp 20:03 Discharged to home ambulatory. dc2 20:03 Condition: stable 20:03 Discharge instructions given to patient, Instructed on discharge instructions, follow up and referral plans. Demonstrated understanding of instructions, follow-up care. 20:08 Patient left the ED. dc2 Signatures: Dispatcher [employer] ERICAIN Sabrnia GardnerJoseph MD MD rn Smirch, Shelby, RN RN ss Page, Corey, PA PA cp Charters, Denise, RN RN dc2 Oziel Malagon RN RN jt3 Corrections: (The following items were deleted from the chart) 17:22 17:16 BP 134 / 88; Pulse 88bpm; Resp 16bpm; Pulse Ox 100% RA; Temp 97.7F Temporal; ss 165.11 kg; Height 5 ft. 9 in.; BMI: 53.7; Pain 8/10; ss
[2021-06-06 20:15] VITALS: TEMP 97.7
[2021-06-06 20:16] VITALS: BP 124/90; O2SAT 99
--- NOTE | 2021-06-09 18:32 | EKG ---
Test Date: 2021-06-06 Test Time: 18:19:20 Promotions Specialist: MIRTA MEASUREMENT RESULTS: Intervals: Rate: 73 ID: [id number] QRSD: 76 QT: 386 QTc: 425 [place]: P: 66 ID: [id number] QRS: 39 T: 44 INTERPRETIVE STATEMENTS: Normal sinus rhythm Septal infarct, age undetermined Abnormal ECG No previous ECG available for comparison Electronically Signed On 06-09-21 18:24:28 REGIONAL SERVICE MANAGER by Tab Coy
--- OUTSIDE RECORDS SUMMARY | 2021-06-14 12:46 | XMS REPORT | Continuity of Care Document ---
:1990 Author Organization [facility] Address [address] [place] [address] Dr. Bustos [address] [place] [address] Care Team Providers Name Role Phone Danya BRAMBILA Attending Clinician Unavailable MARKELL Attending Clinician Unavailable Sugar MALHOTRA Attending Clinician Unavailable Payers Payer Name Policy Type Policy Number Effective Date Expiration Date Osei CRUZ [id number] 2015 [facility] 00:00:00 Problems This patient has no known problems. Allergies, Adverse Reactions, Alerts Allergy Allergy Status Severity Reaction(s) Onset Inactive Treating Comm ents Source Name Type Date Date Clinician NO KNOWN Drug Active [facility] Medications This patient has no known medications. Procedures This patient has no known procedures. Encounters Start End Encounter Admission Attending Care Care Encounter Source Date/Time Date/Time Type Type Clinicians Facility Department ID 2021-08-13 2021-08-13 Outpatient Jaja BRAMBILA [facility] [id number] Univers 10:00:00 10:00:00 JEMIMA [id number] [facility] 2021-03-11 2021-03-11 Outpatient Jaja GUILLAUME [facility] [id number] Univers 13:00:00 13:00:00 [place] [id number] [facility] 2021-03-11 2021-03-11 Outpatient Jaja GUILLAUME [facility] [id number] Univers 13:00:00 13:00:00 [place] [facility] 2020-09-13 2020-09-13 Outpatient Jaja MALHOTRA [facility] [id number] Univers 09:00:00 09:00:00 CHRISTY [id number] ity o f [facility] 2020-09-13 2020-09-13 Outpatient Jaja MALHOTRA [facility] [id number] Univers 09:00:00 09:00:00 WONWENDYFUL matteo o f [facility] 2020-08-13 2020-08-13 Outpatient R [facility] [id number] Univers 14:45:00 14:45:00 [id number] matteo [facility] 2020-08-13 2020-08-13 Outpatient R KOSTA [facility] [id number] Univers 13:30:00 13:30:00 JEMIMA felipe [facility] 2020-08-09 2020-08-09 [facility] [id number] [facility] 08:30:00 08:30:00 [facility] Results This patient has no known results.
== END 2021-06-06 20:08 | disposition home or self-care (01) ==
LOC: ER 16:58
DX: R07.9 Chest pain, unspecified (principal); Z20.822 Contact with and (suspected) exposure to COVID-19
CPT/HCPCS: 96361; 93005; 85025; 80048; 36415; 83735; 81025; 85610; 80076; 81003; 84484; 83880; 71045; 96374; 99285; U0003; J7040

== ENCOUNTER 2021-08-22 09:39 | Emergency (ER) | payer OTHER ==
--- OUTSIDE RECORDS SUMMARY | 2021-08-22 09:42 | XMS REPORT | Continuity of Care Document ---
:1990 Author Organization [facility] t Address [address] [place] [address] Dr. Bustos [address] [place] [address] Care Team Providers Name Role Phone PCP, DOES NOT HAVE A Primary Care Physician Unavailable Danya BRAMBILA Attending Clinician Unavailable MARKELL Attending Clinician Unavailable Sugar MALHOTRA Attending Clinician Unavailable Payers Payer Name Policy Type Policy Number Effective Date Expiration Date S javid CRUZ [id number] 2015 [facility] 00:00:00 Problems This patient has no known problems. Allergies, Adverse Reactions, Alerts Allergy Allergy Status Severity Reaction(s) Onset Inactive Treating Comm ents Source Name Type Date Date Clinician NO KNOWN Drug Active Univers ALLERGIE Class [facility] Medications This patient has no known medications. Procedures This patient has no known procedures. Encounters Start End Encounter Admission Attending Care Care Encounter Source Date/Time Date/Time Type Type Clinicians Facility Department ID 2021-09-05 2021-09-05 Outpatient R KOSTA [facility] [id number] Univers 13:30:00 13:30:00 JEMIMA [id number] [facility] 2021-08-13 2021-08-13 Outpatient R KOSTA [facility] [id number] Univers 10:00:00 10:00:00 JEMIMA [id number] [facility] 2021-03-11 2021-03-11 Outpatient R MARKELL [facility] [id number] Univers 13:00:00 13:00:00 [place] [id number] [facility] 2021-03-11 2021-03-11 Outpatient Jaja GUILLAUME [facility] [id number] Univers 13:00:00 13:00:00 [place] [facility] 2020-09-13 2020-09-13 Outpatient R ROSCOE [facility] [id number] Univers 09:00:00 09:00:00 WONDIFUL [id number] ity o f [facility] 2020-09-13 2020-09-13 Outpatient R ROSCOE, [facility] [id number] Univers 09:00:00 09:00:00 WONDIFUL ity o [facility] 2020-08-13 2020-08-13 Outpatient R [facility] [id number] Univers 14:45:00 14:45:00 [id number] [facility] 2020-08-13 2020-08-13 [facility] [id number] Univers 13:30:00 13:30:00 JEMIMA [facility] 2020-08-09 2020-08-09 [facility] [id number] Univers 08:30:00 08:30:00 [facility] Results This patient has no known results.
[2021-08-22 12:10] LABS: SARS-COV-2 RT PCR POSITIVE (NEGATIVE)
--- NOTE | 2021-08-22 12:13 | EDPHYS ---
Physician Documentation [facility] Name: Marva De Santiago Age: 30 yrs Sex: Female : 1990 Arrival Date: 08/22/2021 Time: 09:42 Bed 19 Private MD: ED Physician Jere Sarkar HPI: 08/22 10:54 This 30 yrs old Black Female presents to ER via Ambulatory with complaints of Sore kb Throat, Cough. 10:54 The patient presents with sore throat. The patient describes throat pain as constant. kb Onset: The symptoms/episode began/occurred 5 day(s) ago. Severity of symptoms: At their worst the symptoms were moderate, in the emergency department the symptoms are unchanged. Modifying factors: The symptoms are alleviated by nothing, the symptoms are aggravated by nothing, Patient's oral intake status: good. Associated signs and symptoms: Pertinent positives: cough, flu-like symptoms, myalgias, Sore throat. The patient has not experienced similar symptoms in the past. The patient has not recently seen a physician. Pt reports cough, sore throat, bodyaches, fatigue, malaise and headache since Wednesday. Historical: - Allergies: 09:52 No Known Drug Allergies; ll1 - PMHx: 09:52 enlarged heart; ll1 - PSHx: 09:52 section; ll1 - Immunization history:: Client reports receiving the 2nd dose of the Covid vaccine. - Social history:: Smoking status: Patient denies any tobacco usage or history of. ROS: 10:55 Abdomen/GI: Negative for abdominal pain, nausea, vomiting, diarrhea, and constipation. kb 10:55 Constitutional: Positive for body aches, fatigue, malaise, Negative for chills, fever. 10:55 ENT: Positive for sore throat. 10:55 Respiratory: Positive for cough, Negative for dyspnea on exertion, hemoptysis, orthopnea, pleurisy, shortness of breath, sputum production, wheezing. 10:55 Neuro: Positive for headache. 10:55 All other systems are negative. Exam: 10:55 Constitutional: This is a well developed, well nourished patient who is awake, alert, kb and in no acute distress. Head/Face: Normocephalic, atraumatic. ENT: Moist Mucous membranes Cardiovascular: Regular rate and rhythm with a normal S1 and S2. No gallops, murmurs, or rubs. No pulse deficits. Respiratory: Respirations even and unlabored. No increased work of breathing. Talking in full sentences Skin: Warm, dry with normal turgor. Normal color. MS/ Extremity: Pulses equal, no cyanosis. Neurovascular intact. Full, normal range of motion. Neuro: Awake and alert, GCS 15, oriented to person, place, time, and situation. Moves all extremities. Normal gait. Psych: Awake, alert, with orientation to person, place and time. Behavior, mood, and affect are within normal limits. Vital Signs: 09:51 BP 148 / 136; Pulse 101; Resp 18; Temp 99.0; Pulse Ox 100% ; Pain 0/10; ll1 11:45 BP 125 / 78; Pulse 82; Resp 18; Pulse Ox 100% on R/A; ww 12:24 BP 133 / 95; Pulse 84; Resp 18; Pulse Ox 99% on R/A; ww MDM: 09:47 Patient medically screened. kb 10:53 Data reviewed: vital signs, nurses notes. Data interpreted: Pulse oximetry: on room air kb is 100 %. Interpretation: normal. 12:12 Counseling: I had a detailed discussion with the patient and/or guardian regarding: the kb historical points, exam findings, and any diagnostic results supporting the discharge/admit diagnosis, lab results, the need for outpatient follow up, a family practitioner, to return to the emergency department if symptoms worsen or persist or if there are any questions or concerns that arise at home. 08/22 09:50 Order name: Strep; Complete Time: 11:30 kb 08/22 09:50 Order name: COVID-19/FLU A+B (Document "Date of Onset" if Symptomatic); Complete Time: kb 12:12 08/22 11:23 Order name: Throat Culture EDMS Administered Medications: No medications were administered Disposition Summary: 08/22/21 12:12 Discharge Ordered Location: Home kb Condition: Stable kb Diagnosis - Coronavirus infection, unspecified kb Followup: kb - With: Emergency Department - When: As needed - Reason: Worsening of condition Followup: kb - With: Private Physician - When: 2 - 3 days - Reason: Recheck today's complaints, Continuance of care, Re-evaluation by your physician Discharge Instructions: - Discharge Summary Sheet kb - Viral Respiratory Infection, [id number]-Dr-[id number] kb - COVID-19 kb Forms: - Medication Reconciliation Form kb - Thank You Letter kb - Antibiotic Education kb - Prescription Opioid Use kb Addendum: 08/24/2021 07:06 Co-signature as Attending Physician, Jere Sarkar MD I agree with the assessment and c bruce plan of care. Signatures: Dispatcher [employer] EDRenu Moya, BUDGET RECORD CLERK-C BUDGET RECORD CLERK-Jere Rutledge MD MD cha Lewis, Lynsay, RN RN ll1
--- NOTE | 2021-08-22 12:13 | ER ---
Nurse's Notes [facility] Name: Marva De Santiago Age: 30 yrs Sex: Female : 1990 Arrival Date: 08/22/2021 Time: 09:42 Bed 19 Private MD: Diagnosis: Coronavirus infection, unspecified Presentation: 08/22 09:51 Chief complaint: Patient states: Sore throat, cough, BHATIA, body aches, fatigue since ll1 Wednesday. No fever. Coronavirus screen: Vaccine status: Patient reports receiving the 2nd dose of the covid vaccine. Client denies travel out of the [place] in the last 14 days. cough unrelated to allergies, fatigue, headache, muscle pain, sore throat, Client presents with at least one sign or symptom that may indicate coronavirus-19. Standard/surgical mask placed on the client. Ebola Screen: Patient denies travel to an Ebola-affected area in the 21 days before illness onset. Initial Sepsis Screen: Does the patient meet any 2 criteria? No. Patient's initial sepsis screen is negative. Does the patient have a suspected source of infection? Yes: Productive cough/pneumonia. Risk Assessment: Do you want to hurt yourself or someone else? Patient reports no desire to harm self or others. Onset of symptoms was August 18, 2021. 09:51 Method Of Arrival: Ambulatory ll1 09:51 Acuity: NORBERT 4 ll1 Historical: - Allergies: 09:52 No Known Drug Allergies; ll1 - PMHx: 09:52 enlarged heart; ll1 - PSHx: 09:52 section; ll1 - Immunization history:: Client reports receiving the 2nd dose of the Covid vaccine. - Social history:: Smoking status: Patient denies any tobacco usage or history of. Screenin:00 Abuse screen: Denies threats or abuse. Denies injuries from another. Nutritional ww screening: No deficits noted. Tuberculosis screening: No symptoms or risk factors identified. Fall Risk None identified. Assessment: 10:00 General: Appears in no apparent distress. comfortable, Behavior is calm, cooperative, ww appropriate for age. Pain: Denies pain. Neuro: Level of Consciousness is awake, alert, obeys commands, Oriented to person, place, time, situation, Appropriate for age Speech is normal. Cardiovascular: Heart tones present Capillary refill < 3 seconds Patient's skin is warm and dry. Respiratory: Airway is patent Respiratory effort is even, unlabored, Respiratory pattern is regular, symmetrical, Breath sounds are clear bilaterally. GI: No deficits noted. No signs and/or symptoms were reported involving the gastrointestinal system. : No deficits noted. No signs and/or symptoms were reported regarding the genitourinary system. EENT: Nares are clear with drainage noted. EENT: Throat is reddened. Derm: Skin is intact, is healthy with good turgor, Skin is pink, warm \T\ dry. 11:45 Reassessment: Patient appears in no apparent distress at this time. No changes from ww previously documented assessment. Patient and/or family updated on plan of care and expected duration. Pain level reassessed. Patient is alert, oriented x 3, equal unlabored respirations, skin warm/dry/pink. Vital Signs: 09:51 BP 148 / 136; Pulse 101; Resp 18; Temp 99.0; Pulse Ox 100% ; Pain 0/10; ll1 11:45 BP 125 / 78; Pulse 82; Resp 18; Pulse Ox 100% on R/A; ww 12:24 BP 133 / 95; Pulse 84; Resp 18; Pulse Ox 99% on R/A; ww ED Course: 09:42 Patient arrived in ED. as 09:47 Renu Viramontes FNP-C is [facility]. kb 09:47 Jere Sarkar MD is Attending Physician. kb 09:49 Oksana Moffett, RN is Primary Nurse. ww 09:51 Arm band placed on Patient placed in an exam room, on a stretcher. ll1 09:52 Triage completed. ll1 12:24 Patient has correct armband on for positive identification. Bed in low position. Call ww light in reach. Side rails up X 1. 12:25 No provider procedures requiring assistance completed. Patient did not have IV access ww during this emergency room visit. Administered Medications: No medications were administered Outcome: 12:12 Discharge ordered by . kb 12:25 Discharged to home ambulatory. ww 12:25 Condition: good 12:25 Discharge instructions given to patient, Instructed on discharge instructions, follow up and referral plans. medication usage, safety practices, Demonstrated understanding of instructions, follow-up care, medications. 12:25 Patient left the ED. ww Signatures: Renu Viramontes FNP-C FNP-Sona Beebe as Rey Carbone, RN RN ll1 Oksana Moffett, RN RN ww
[2021-08-22 12:40] VITALS: TEMP 99
[2021-08-22 12:42] VITALS: BP 133/95; O2SAT 99
== END 2021-08-22 12:25 | disposition home or self-care (01) ==
LOC: ER 09:39
DX: U07.1 COVID-19 (principal)
CPT/HCPCS: 87070; 87081; 0240U; 99281

== ENCOUNTER 2021-12-08 16:02 | Emergency (ER) | payer OTHER ==
--- OUTSIDE RECORDS SUMMARY | 2021-12-08 16:05 | XMS REPORT | Continuity of Care Document ---
:1990 Author Organization [facility] t Address [address] [place] [address] Care Team Providers Name Role Phone PCP, DOES NOT HAVE A Primary Care Physician Unavailable Only, Test Attending Clinician Unavailable Sugar Chauhan MD Attending Clinician Sugar CHAUHAN Attending Clinician Unavailable Danya BRAMBILA Attending Clinician Unavailable Asha Chahal RN Attending Clinician Unavailable Only, Db Test Attending Clinician Unavailable Dell CHIN Attending Clinician DELL Attending Clinician Unavailable MARKELL Attending Clinician Unavailable Sugar MALHOTRA Attending Clinician Unavailable Payers Payer Name Policy Type Policy Number Effective Date Expiration Date S ource Problems Condition Condition Condition Status Onset Resolution Last Treating Co mments Source Name Details Category Date Date Treatment Clinician Date Obesity, Obesity, Disease Active NPI:1 83 morbid morbid 05-01 [id number] 00:00: 00 Genital Genital Disease Active NPI:183 labial labial 05-01 [id number] ulcer ulcer 00:00: 00 BMI BMI Disease Active NPI:183 50.0-59.9, 50.0-59.9, 13 42688 adult adult Allergies, Adverse Reactions, Alerts Allergy Allergy Status Severity Reaction(s) Onset Inactive Treating Comm ents Source Name Type Date Date Clinician NO KNOWN Drug Active NPI:183 ALLERGIE Class [id number] S Social History Social Habit Start Date Stop Date Quantity Comments Source History of Cigarette Smoker NPI:[id number] tobacco use Exposure to Not sure NPI:[id number] 1 SARS-CoV-2 (event) Tobacco use and 2020-08-13 2020-08-13 Never used NPI:[id number] exposure 00:00:00 00:00:00 Alcohol intake 2020-08-13 2020-08-13 Current NPI:[id number] 00:00:00 00:00:00 non-drinker of alcohol (finding) Tobacco Comment 2020-08-13 2020-08-13 3 ciggs per day 00:00:00 00:00:00 Sex [birth year] At [birth year] NPI:[id number] 00:00:00 00:00:00 Smoking Status Start Date Stop Date Source Current every day smoker 2020-08-13 00:00:00 NPI :[id number] Medications Ordered Filled Start Stop Current Ordering Indication Dosage Frequency Signature Comments Components Source Medication Medication Date Date Medication? Clinician (SIG) Name Name No known No NPI:183 medications 8-10 [id number] 13:51: 01 No known No NPI:183 medications 8-10 [id number] 13:51: 01 No known No NPI:183 medications 8-10 [id number] 13:51: 01 Immunizations Ordered Immunization Filled Immunization Date Status Commen ts Source Name Name Rubella 2012 Completed 00:00:00 Rubella 2012 Completed 00:00:00 Rubella 2012 Completed 00:00:00 Varicella 2012-10-05 Completed (varivax)(chicken 00:00:00 pox) Varicella 2012-10-05 Completed (varivax)(chicken 00:00:00 pox) Varicella 2012-10-05 Completed (varivax)(chicken 00:00:00 pox) Td 2003-08-02 Completed 00:00:00 Td 2003-08-02 Completed 00:00:00 Td 2003-08-02 Completed 00:00:00 Procedures This patient has no known procedures. Encounters Start End Encounter Admission Attending Care Care Encounter Source Date/Time Date/Time Type Type Clinicians Facility Department ID 2021-09-12 2021-09-12 Laboratory Only, Adc Test [facility] [id number]. [id number] NPI:183 13:30:00 13:45:00 Only Vijay Chauhan [id number] [place] 4.2.7.2.686 [place] [id number] 2021-09-12 2021-09-12 Outpatient R [facility] [id number] NPI:183 13:30:00 13:30:00 [id number] 2021-09-12 2021-09-12 [facility] [id number] NPI:183 13:30:00 13:30:00 VIJAY [id number] 1 2021-09-05 2021-09-05 [facility] [id number] NPI:183 13:30:00 13:30:00 JEMIMA [id number] 2021-09-05 2021-09-05 [facility] [id number] NPI:183 13:30:00 13:30:00 JEMIMA [id number] 2021-09-02 2021-09-02 Letter JENAE Chahal [id number] NPI:183 00:00:00 00:00:00 (Out) Rahcel Barry MEGAN [id number] [id number] [facility] [id number] [id number] 2021-09-01 2021-09-01 Laboratory Only, Ang Db Test [facility] [id number] 40.114 [id number] NPI:183 13:45:00 14:00:00 Only Dell [facility] [id number] [id number] [place] 4.2.7.2.686 DENEEN?BLEA [id number] [place] [address] MEDICAL OFFICE [facility] 2021-09-01 2021-09-01 Outpatient R [facility] [id number] NPI:183 13:45:00 13:45:00 [id number] 2021-09-01 2021-09-01 Outpatient R DELL [facility] [id number] NPI:183 13:45:00 13:45:00 KERLINE [id number] 2021-08-13 2021-08-13 Outpatient R KOSTA [facility] [id number] NPI:183 10:00:00 10:00:00 JEMIMA [id number] 2021-03-11 2021-03-11 Outpatient R MARKELL [facility] [id number] NPI:183 13:00:00 13:00:00 [place] [id number] 2021-03-11 2021-03-11 Outpatient R MARKELL, [facility] [id number] NPI:183 13:00:00 13:00:00 AR [id number] 2020-09-13 2020-09-13 Outpatient R ROSCOE [facility] [id number] NPI:183 09:00:00 09:00:00 WONDIFUL [id number] 2020-09-13 2020-09-13 Outpatient R ROCSOE [facility] [id number] NPI:183 09:00:00 09:00:00 WONDIFUL [id number] 2020-08-13 2020-08-13 Outpatient R [facility] [id number] NPI:183 14:45:00 14:45:00 [id number] 2020-08-13 2020-08-13 Outpatient R KOSTA [facility] [id number] NPI:183 13:30:00 13:30:00 JEMIMA [id number] 1 2020-08-09 2020-08-09 Outpatient R KOSTA [facility] [id number] NPI:183 08:30:00 08:30:00 JEMIMA [id number] Results This patient has no known results.
[2021-12-08] MEDS ORDERED: ASPIRIN 81 MG CHEWABLE TABLET ONE (16:24)
--- NOTE | 2021-12-08 16:51 | RAD REPORT ---
EXAM DESCRIPTION: RAD - Chest Single View - 12/08/2021 4:40 pm CLINICAL HISTORY: CHEST PAIN Chest pain. COMPARISON: Chest Single View dated 06/06/2021 FINDINGS: Portable technique limits examination quality. The lungs are grossly clear. Heart size is upper limit of normal. No displaced fractures. IMPRESSION: No acute intrathoracic process suspected.
[2021-12-08 17:00] LABS: Absolute Lymphocytes (CBC) 2.1 K/uL (0.7-4.9); Lymphocytes % 28.2 % (15.3-44.8); MPV 8.2 fL (7.6-11.3); RBC Red Blood Cell Count 4.24 M/uL (3.86-4.86)
[2021-12-08 17:23] LABS: Albumin 3.2 g/dL (3.4-5.0); Bilirubin Total 0.2 mg/dL (0.2-1.0); Magnesium 1.8 mg/dL (1.8-2.4); Potassium 3.5 mmol/L (3.5-5.1); Protein, Total 7.1 g/dL (6.4-8.2); Troponin High Sensitivity 4.2 pg/mL (<58.9)
[2021-12-08] MEDS ORDERED: KETOROLAC 30 MG/ML INJ ONE (17:39)
--- NOTE | 2021-12-08 17:45 | EDPHYS ---
Physician Documentation [facility] Name: Marva De Santiago Age: 31 yrs Sex: Female : 1990 Arrival Date: 12/08/2021 Time: 16:03 Bed 8 Private MD: ED Physician Jere Sarkar HPI: 12/08 18:46 This 31 yrs old Black Female presents to ER via Ambulatory with complaints of Chest jh7 Pain. 18:46 Onset: The symptoms/episode began/occurred today. Associated signs and symptoms: jh7 Pertinent negatives: cough, headache, shortness of breath, wheezing. Patient presents for chest pain starting today with no other symptoms. States that she has had this happen before, and has an appointment with cardiology next week. Reports that her only medical problem is cardiomegaly, which she found out on her last CXR.. Historical: - Allergies: 16:24 No Known Drug Allergies; bp - PMHx: 16:24 Enlarged Heart; bp - PSHx: 16:24 section; bp - Immunization history:: Adult Immunizations up to date. - Social history:: Smoking status: unknown. ROS: 19:09 Constitutional: Negative for fever, chills, and weight loss, Respiratory: Negative for jh7 shortness of breath, cough, wheezing, and pleuritic chest pain, Abdomen/GI: Negative for abdominal pain, nausea, vomiting, diarrhea, and constipation, Back: Negative for injury and pain, Skin: Negative for injury, rash, and discoloration, Neuro: Negative for headache, weakness, numbness, tingling, and seizure. 19:09 Cardiovascular: Positive for chest pain. 19:09 All other systems are negative. Exam: 19:09 Constitutional: This is a well developed, well nourished patient who is awake, alert, jh7 and in no acute distress. Neck: Trachea midline, no thyromegaly or masses palpated, and no cervical lymphadenopathy. Supple, full range of motion without nuchal rigidity, or vertebral point tenderness. No Meningismus. Cardiovascular: Regular rate and rhythm with a normal S1 and S2. No gallops, murmurs, or rubs. Normal PMI, no JVD. No pulse deficits. Respiratory: Lungs have equal breath sounds bilaterally, clear to auscultation and percussion. No rales, rhonchi or wheezes noted. No increased work of breathing, no retractions or nasal flaring. Abdomen/GI: Soft, non-tender, with normal bowel sounds. No distension or tympany. No guarding or rebound. No evidence of tenderness throughout. Skin: Warm, dry with normal turgor. Normal color with no rashes, no lesions, and no evidence of cellulitis. Neuro: Awake and alert, GCS 15, oriented to person, place, time, and situation. Vital Signs: 16:05 BP 134 / 82; Pulse 96; Resp 18; Temp 98.2; Pulse Ox 100% ; Weight 171 kg; Height 5 ft. bp 9 in. (175.26 cm); 17:00 BP 123 / 91; Pulse 80; Resp 16; Pulse Ox 100% ; bp 18:00 BP 132 / 94; Pulse 83; Resp 20; Pulse Ox 98% ; bp 16:05 Body Mass Index 55.67 (171.00 kg, 175.26 cm) bp MDM: 16:07 Patient medically screened. [facility] 19:09 Differential diagnosis: Acute OK, Pneumonia, Costochondritis, Chest wall pain. Data [facility] reviewed: vital signs, nurses notes, lab test result(s), EKG, radiologic studies, plain films. Data interpreted: Pulse oximetry: is 98 %. Interpretation: normal. Test interpretation: by ED physician or midlevel provider: ECG. Counseling: I had a detailed discussion with the patient and/or guardian regarding: the historical points, exam findings, and any diagnostic results supporting the discharge/admit diagnosis, to return to the emergency department if symptoms worsen or persist or if there are any questions or concerns that arise at home. Special discussion: Based on the patient's history, exam, and Dx evaluation, there is no indication for emergent intervention or inpatient Tx. It is understood by the patient/guardian that if the Sx's persist or worsen they need to return immediately for re-evaluation. ED course: Patient remained hemodynamically stable throughout the ER visit. Her labs and x-rays were normal. Advised the patient to follow-up with the design architect as scheduled. If her symptoms return, or worsen, the patient is to return to the ER for further eval. The patient understood the plan of care.. 12/08 16:17 Order name: CBC with Diff; Complete Time: 17:13 [facility] 12/08 16:17 Order name: Magnesium; Complete Time: 17:26 [facility] 12/08 16:17 Order name: NT PRO-BNP; Complete Time: 17:26 [facility] 12/08 16:17 Order name: Troponin HS; Complete Time: 17:26 [facility] 12/08 16:17 Order name: XRAY Chest (1 view); Complete Time: 16:53 [facility] 12/08 16:17 Order name: CMP; Complete Time: 17:26 [facility] 12/08 16:17 Order name: EKG; Complete Time: 16:18 [facility] 12/08 16:17 Order name: Cardiac monitoring; Complete Time: 16:28 [facility] 12/08 16:17 Order name: EKG - Nurse/Tech; Complete Time: 16:28 [facility] 12/08 16:17 Order name: IV Saline Lock; Complete Time: 16:52 [facility] 12/08 16:17 Order name: Labs collected and sent; Complete Time: 16:52 [facility] 12/08 16:17 Order name: O2 Per Protocol; Complete Time: 16:28 [facility] 12/08 16:17 Order name: O2 Sat Monitoring; Complete Time: 16:28 [facility] EC:09 Rate is 84 beats/min. Rhythm is regular. QRS [place] is Normal. [place] interval is normal. T jh7 waves are Normal. No ST changes noted. Clinical impression: Normal ECG. Administered Medications: 16:30 Drug: Aspirin Chewable Tablet 324 mg Route: PO; bp 18:01 Follow up: Response: No adverse reaction bp 17:45 Drug: Ketorolac 15 mg Route: IVP; Site: right antecubital; 7 18:06 Follow up: Response: No adverse reaction bp 18:17 Follow up: Response: Pain is decreased [facility] Disposition Summary: 12/08/21 17:45 Discharge Ordered Location: Home [facility] Problem: new [facility] Symptoms: have improved [facility] Condition: Stable [facility] Diagnosis - Chest pain, unspecified [facility] Followup: [facility] - With: Private Physician - When: 2 - 3 days - Reason: Recheck today's complaints Discharge Instructions: - Discharge Summary Sheet [facility] - Nonspecific Chest Pain, Adult [facility] Forms: - Medication Reconciliation Form [facility] - Thank You Letter [facility] Signatures: Dispatcher [employer] Kristin Chin RN RN jl7 Pastor Melchor RN RN Kate Meza, FRAUD INVESTIGATOR FRAUD INVESTIGATOR 7 Corrections: (The following items were deleted from the chart) 19:10 18:46 Patient presents for chest pain starting today with no other symptoms. States jh7 that she has had this happen before, and has an appointment with cardiology next week. Reports that her only medical problem is cardiomegaly.. jh7
--- NOTE | 2021-12-08 17:45 | ER ---
Nurse's Notes [facility] Name: Marva De Santiago Age: 31 yrs Sex: Female : 1990 Arrival Date: 12/08/2021 Time: 16:03 Bed 8 Private MD: Diagnosis: Chest pain, unspecified Presentation: 12/08 16:05 Chief complaint: Patient states: CHEST PAIN. Coronavirus screen: At this time, the bp client does not indicate any symptoms associated with coronavirus-19. Ebola Screen: No symptoms or risks identified at this time. Initial Sepsis Screen: Does the patient meet any 2 criteria? No. Patient's initial sepsis screen is negative. Does the patient have a suspected source of infection? No. Patient's initial sepsis screen is negative. Risk Assessment: Do you want to hurt yourself or someone else? Patient reports no desire to harm self or others. Onset of symptoms is unknown. 16:05 Method Of Arrival: Ambulatory bp 16:05 Acuity: NORBERT 3 bp Triage Assessment: 16:05 General: Appears in no apparent distress. comfortable, obese, Behavior is cooperative, bp appropriate for age, anxious. Pain: Complains of pain in chest. EENT: No deficits noted. Neuro: Level of Consciousness is awake, alert, obeys commands, Oriented to person, place, time, situation, Appropriate for age. Cardiovascular: Rhythm is sinus rhythm. Respiratory: No deficits noted. GI: No signs and/or symptoms were reported involving the gastrointestinal system. : No signs and/or symptoms were reported regarding the genitourinary system. Derm: No deficits noted. Musculoskeletal: No deficits noted. Historical: - Allergies: 16:24 No Known Drug Allergies; bp - PMHx: 16:24 Enlarged Heart; bp - PSHx: 16:24 section; bp - Immunization history:: Adult Immunizations up to date. - Social history:: Smoking status: unknown. Screenin:05 Abuse screen: Denies threats or abuse. Denies injuries from another. Nutritional bp screening: No deficits noted. Tuberculosis screening: No symptoms or risk factors identified. Fall Risk None identified. Assessment: 16:05 General: SEE TRIAGE NOTE. bp 17:00 Reassessment: No changes from previously documented assessment. Patient and/or family bp updated on plan of care and expected duration. Pain level reassessed. 18:04 Reassessment: PT D/C HOME AMBULATORY, DX WITH NONCARDIAC CHEST PAIN. bp Vital Signs: 16:05 BP 134 / 82; Pulse 96; Resp 18; Temp 98.2; Pulse Ox 100% ; Weight 171 kg; Height 5 ft. bp 9 in. (175.26 cm); 17:00 BP 123 / 91; Pulse 80; Resp 16; Pulse Ox 100% ; bp 18:00 BP 132 / 94; Pulse 83; Resp 20; Pulse Ox 98% ; bp 16:05 Body Mass Index 55.67 (171.00 kg, 175.26 cm) bp ED Course: 16:03 Patient arrived in ED. am2 16:05 Arm band placed on. bp 16:05 Patient has correct armband on for positive identification. Bed in low position. Call bp light in reach. Side rails up X2. Client placed on continuous cardiac and pulse oximetry monitoring. NIBP monitoring applied. 16:07 Kate Parrish FNP [facility] 16:07 Jere Sarkar MD is Attending Physician. [facility] 16:08 Pastor Melchor, MAXINE is Primary Nurse. bp 16:24 Triage completed. bp 16:42 XRAY Chest (1 view) In Process Unspecified. EDMS 16:50 Inserted saline lock: 22 gauge in right antecubital area, using aseptic technique. bp Blood collected. 18:04 No provider procedures requiring assistance completed. IV discontinued, intact, bp bleeding controlled, No redness/swelling at site. Pressure dressing applied. Patient maintains SpO2 saturation greater than 95% on room air. Administered Medications: 16:30 Drug: Aspirin Chewable Tablet 324 mg Route: PO; bp 18:01 Follow up: Response: No adverse reaction bp 17:45 Drug: Ketorolac 15 mg Route: IVP; Site: right antecubital; jl7 18:06 Follow up: Response: No adverse reaction bp 18:17 Follow up: Response: Pain is decreased jl7 Outcome: 17:45 Discharge ordered by . [facility] 18:04 Discharged to home ambulatory, with family. bp 18:04 Condition: stable 18:04 Discharge instructions given to patient, Instructed on discharge instructions, follow up and referral plans. Demonstrated understanding of instructions, follow-up care. 18:21 Patient left the ED. jl7 Signatures: Dispatcher [employer] EDMS Kristin Mata, RN RN jl7 Kaylan Cardenas am2 Pastor Melchor RN RN bp Kate Parrish FNP CALL CENTER DIRECTOR jh7 Corrections: (The following items were deleted from the chart) 16:29 16:05 BP 134 / 82; Pulse 9bpm; Resp 18bpm; Pulse Ox 100%; Temp 98.2F; 171 kg; Height 5 bp ft. 9 in.; BMI: 55.6; bp
[2021-12-08 22:07] VITALS: TEMP 98.2
[2021-12-08 22:10] VITALS: BP 132/94; O2SAT 98
--- NOTE | 2021-12-09 10:20 | EKG ---
Test Date: 2021-12-08 Test Time: 16:20:10 A/C Tech: MIRTA MEASUREMENT RESULTS: Intervals: Rate: 84 NH: 144 QRSD: 88 QT: 374 QTc: 441 [place]: P: NH: 144 QRS: 69 T: 81 INTERPRETIVE STATEMENTS: Normal sinus rhythm with sinus arrhythmia Cannot rule out Anterior infarct, age undetermined Abnormal ECG Compared to ECG 06/06/2021 18:19:20 No significant changes Electronically Signed On 12-09-21 10:17:34 CDT by Tab Coy
== END 2021-12-08 18:21 | disposition home or self-care (01) ==
LOC: ER 16:02
DX: R07.9 Chest pain, unspecified (principal)
CPT/HCPCS: 36415; 71045; 80053; 83735; 83880; 84484; 85025; 93005; 96374; 99285

== ENCOUNTER 2022-06-27 18:19 | Emergency (ER) | payer OTHER ==
--- OUTSIDE RECORDS SUMMARY | 2022-06-27 18:31 | XMS REPORT | Continuity of Care Document ---
:1990 Author Organization [facility] t Address [address] [place] [address] Dr. Aranda. [address] [place] [address] Care Team Providers Name Role Phone Rose Mcneil Primary Care Physician UNIQUE STEVENS Attending Clinician Unavailable ROSE SALAS Attending Clinician Unavailable Rose Mcneil Attending Clinician Lab, Ang - Db Attending Clinician Unavailable Unique Stevens MD Attending Clinician Doctor Unassigned, Osino Attending Clinician Unavailable Only, Adc Test Attending Clinician Unavailable Vijay Chauhan MD Attending Clinician VIJAY CHAUHAN Attending Clinician Unavailable Rachel Chahal RN Attending Clinician Unavailable Only, Ang Db Test Attending Clinician Unavailable Kerline Sharpe MD Attending Clinician KERLINE SHARPE Attending Clinician Unavailable AR GUILLAUME Attending Clinician Unavailable CHRISTY MALHOTRA Attending Clinician Unavailable Payers Payer Name Policy Type Policy Number Effective Date Expiration Date [facility] [id number] 2022 [facility] MEDICAID 00:00:00 Problems Condition Condition Condition Status Onset Resolution Last Treating Co mments Source Name Details Category Date Date Treatment Clinician Date Obesity, Obesity, Disease Active Unive rs morbid morbid - ity of 00:00: [address] Genital Genital Disease Active Univers labial labial 05-01 ity of ulcer ulcer 00:00: [address] BMI BMI Disease Active Univers 50.0-59.9, 50.0-59.9, it y of adult adult [facility] Allergies, Adverse Reactions, Alerts Allergy Allergy Status Severity Reaction(s) Onset Inactive Treating Comm ents Source Name Type Date Date Clinician NO KNOWN Drug Active Univers ALLERGIE Class ity of S [facility] Social History Social Habit Start Date Stop Date Quantity Comments Source History of Passive smoker University of tobacco use [facility] Exposure to 2022-06-08 2022-06-18 Not sure University SARS-CoV-2 00:00:00 13:07:00 [facility] (event) [place] Alcohol intake 2022-06-18 2022-06-18 Current University of 00:00:00 00:00:00 non-drinker of [facility] alcohol (finding) [place] Tobacco use and 2022-03-05 2022-03-05 Smokeless tobacco Un iversity of exposure 00:00:00 00:00:00 non-user [facility] Tobacco Comment 2022-03-05 2022-03-05 Quit 09/2021 Universi ty of 00:00:00 00:00:00 [facility] Sex Ass[birth year] At [birth year] Universit y of 00:00:00 00:00:00 [facility] Smoking Status Start Date Stop Date Source Ex-smoker 2022-03-05 00:00:00 2022-03-05 [facility] Medications Ordered Filled Start Stop Current Ordering Indication Dosage Frequency Signature Comments Components Source Medication Medication Date Date Medication? Clinician (SIG) Name Name buPROPion 2021-08 Yes [id number] 150mg Take 1 Univers SR 1-17 tablet by ity of (WELLBUTRIN 00:00: mouth [place] SR[place] 150 mg 00 the Medical SR tablet morning Branch and 1 tablet in the evening. topiramate 2021-08 Yes [id number] 50mg Take 1 Univers (TOPAMAX) 1-17 tablet by ity o f 50 mg 00:00: mouth in [place] tablet 00 the Medical morning. Branch semaglutide 2021-08 Yes [id number] 1{tbl} Take 1 Univers (RYBELSUS) 1-17 tablet by ity of 3 mg Tab 00:00: mouth [place] 00 daily. Medical Branch buPROPion 2021-08 Yes [id number] 150mg Take 1 Univers SR 1-17 tablet by ity of (WELLBUTRIN [place] SR[place] 150 mg 00 the Medical SR tablet morning Branch and 1 tablet in the evening. topiramate 2021-08 Yes [id number] 50mg Take 1 Univers (TOPAMAX) 1-17 tablet by ity o f 50 mg 00:00: mouth in [place] tablet 00 the Medical morning. Branch semaglutide 2021-08 Yes [id number] 1{tbl} Take 1 Univers (RYBELSUS) 1-17 tablet by ity of 3 mg Tab 00:00: mouth [place] 00 daily. Medical Branch buPROPion 2021-08 Yes [id number] 150mg Take 1 Univers SR 1-17 tablet by ity of (WELLBUTRIN 00:[place]: [place] SR[place] 150 mg 00 the Medical SR tablet morning Branch and 1 tablet in the evening. topiramate 2021-08 Yes [id number] 50mg Take 1 Univers (TOPAMAX) 1-17 tablet by ity o f 50 mg 00:00: mouth in [place] tablet 00 the Medical morning. Branch semaglutide 2021-08 Yes [id number] 1{tbl} Take 1 Univers (RYBELSUS) 1-17 tablet by ity of 3 mg Tab 00:00: mouth [place] 00 daily. Medical Branch buPROPion 2021-08 Yes [id number] 150mg Take 1 Univers SR 1-17 tablet by ity of (WELLBUTRIN 00:[place]: [place] SR[place] 150 mg 00 the Medical SR tablet morning Branch and 1 tablet in the evening. topiramate 2021-08 Yes [id number] 50mg Take 1 Univers (TOPAMAX) 1-17 tablet by ity o f 50 mg 00:00: mouth in [place] tablet 00 the Medical morning. Branch semaglutide 2021-08 Yes [id number] 1{tbl} Take 1 Univers (RYBELSUS) 1-17 tablet by ity of 3 mg Tab 00:00: mouth [place] 00 daily. Medical Branch buPROPion 2021-08 Yes [id number] 150mg Take 1 Univers SR 1-17 tablet by ity of (WELLBUTRIN 00:[place]: [place] SR[place] 150 mg 00 the Medical SR tablet morning Branch and 1 tablet in the evening. topiramate 2021-08 Yes [id number] 50mg Take 1 Univers (TOPAMAX) 1-17 tablet by ity o f 50 mg 00:00: mouth in [place] tablet 00 the Medical morning. Branch semaglutide 2021-08 Yes [id number] 1{tbl} Take 1 Univers (RYBELSUS) 1-17 tablet by ity of 3 mg Tab 00:00: mouth [place] 00 daily. Medical Branch metroNIDAZO 0 Yes [id number] 500mg Take 1 Univers LE 500 mg 8-09 tablet by ity o f tablet 00:00: mouth [place] 00 every 12 Medical (twelve) Branch hours. metroNIDAZO 2021-0 Yes [id number] 500mg Take 1 Univers LE 500 mg 8-09 tablet by ity o f tablet 00:00: mouth [place] 00 every 12 Medical (twelve) Branch hours. metroNIDAZO 2021-0 Yes [id number] 500mg Take 1 Univers LE 500 mg 8-09 tablet by ity o f tablet 00:00: mouth [place] 00 every 12 Medical (twelve) Branch hours. metroNIDAZO 2021-0 Yes [id number] 500mg Take 1 Univers LE 500 mg 8-09 tablet by ity o f tablet 00:00: mouth [place] 00 every 12 Medical (twelve) Branch hours. metroNIDAZO 2021-0 Yes [id number] 500mg Take 1 Univers LE 500 mg 8-09 tablet by ity o f tablet 00:00: mouth [place] 00 every 12 Medical (twelve) Branch hours. metroNIDAZO 2021-0 Yes [id number] 500mg Take 1 Univers LE 500 mg 8-09 tablet by ity o f tablet 00:00: mouth [place] 00 every 12 Medical (twelve) Branch hours. metroNIDAZO 2021-0 Yes [id number] 500mg Take 1 Univers LE 500 mg 8-09 tablet by ity o f tablet 00:00: mouth [place] 00 every 12 Medical (twelve) Branch hours. metroNIDAZO 2021-0 Yes [id number] 500mg Take 1 Univers LE 500 mg 8-09 tablet by ity o f tablet 00:00: mouth [place] 00 every 12 Medical (twelve) Branch hours. metroNIDAZO 2021-0 Yes [id number] 500mg Take 1 Univers LE 500 mg 8-09 tablet by ity o f tablet 00:00: mouth [place] 00 every 12 Medical (twelve) Branch hours. metroNIDAZO 2021-0 Yes [id number] 500mg Take 1 Univers LE 500 mg 8-09 tablet by ity o f tablet 00:00: mouth [place] 00 every 12 Medical (twelve) Branch hours. metroNIDAZO 2022-0 Yes [id number] 500mg Take 1 Univers LE 500 mg 8-09 tablet by ity o f tablet 00:00: mouth [place] 00 every 12 Medical (twelve) Branch hours. metroNIDAZO 2022-0 Yes [id number] 500mg Take 1 Univers LE 500 mg 8-09 tablet by ity o f tablet 00:00: mouth [place] 00 every 12 Medical (twelve) Branch hours. metroNIDAZO 2022-0 Yes [id number] 500mg Take 1 Univers LE 500 mg 8-09 tablet by ity o f tablet 00:00: mouth [place] 00 every 12 Medical (twelve) Branch hours. metroNIDAZO 2022-0 Yes [id number] 500mg Take 1 Univers LE 500 mg 8-09 tablet by ity o f tablet 00:00: mouth [place] 00 every 12 Medical (twelve) Branch hours. metroNIDAZO 2022-0 Yes [id number] 500mg Take 1 Univers LE 500 mg 8-09 tablet by ity o f tablet 00:00: mouth [place] 00 every 12 Medical (twelve) Branch hours. Immunizations Ordered Filled Immunization Date Status Comments [facility] e Immunization Name Name Rubella 2012 Completed University of 00:00:00 [facility] Rubella 2012 Completed University of 00:00:00 [facility] Rubella 2012 Completed University of 00:00:00 [facility] Rubella 2012 Completed University of 00:00:00 [facility] Rubella 2012 Completed University of 00:00:00 [facility] Rubella 2012 Completed University of 00:00:00 [facility] Rubella 2012 Completed University of 00:00:00 [facility] Rubella 2012 Completed University of 00:00:00 [facility] Rubella 2012 Completed University of 00:00:00 [facility] Rubella 2012 Completed University of 00:00:00 [facility] Rubella 2012 Completed University of 00:00:00 [facility] Rubella 2012 Completed University of 00:00:00 [facility] Rubella 2012 Completed University of 00:00:00 [facility] Rubella 2012 Completed University of 00:00:00 [facility] Branch Rubella 2012 Completed University of 00:00:00 [facility] Branch Varicella 2012-10-05 Completed University of (varivax)(chicken 00:00:00 [place] [facility] pox) Branch Varicella 2012-10-05 Completed University of (varivax)(chicken 00:00:00 [place] [facility] pox) Branch Varicella 2012-10-05 Completed University of (varivax)(chicken 00:00:00 [place] [facility] pox) Branch Varicella 2012-10-05 Completed University of (varivax)(chicken 00:00:00 [place] [facility] pox) Branch Varicella 2012-10-05 Completed University of (varivax)(chicken 00:00:00 [place] [facility] pox) Branch Varicella 2012-10-05 Completed University of (varivax)(chicken 00:00:00 [place] [facility] pox) Branch Varicella 2012-10-05 Completed University of (varivax)(chicken 00:00:00 [place] [facility] pox) Branch Varicella 2012-10-05 Completed University of (varivax)(chicken 00:00:00 [place] [facility] pox) Branch Varicella 2012-10-05 Completed University of (varivax)(chicken 00:00:00 [place] [facility] pox) Branch Varicella 2012-10-05 Completed University of (varivax)(chicken 00:00:00 [place] [facility] pox) Branch Varicella 2012-10-05 Completed University of (varivax)(chicken 00:00:00 [place] [facility] pox) Branch Varicella 2012-10-05 Completed University of (varivax)(chicken 00:00:00 [place] [facility] pox) Branch Varicella 2012-10-05 Completed University of (varivax)(chicken 00:00:00 [place] [facility] pox) Branch Varicella 2012-10-05 Completed University of (varivax)(chicken 00:00:00 [place] [facility] pox) Branch Varicella 2012-10-05 Completed University of (varivax)(chicken 00:00:00 [place] [facility] pox) Branch Td 2003-08-02 Completed University of 00:00:00 [facility] Td 2003-08-02 Completed University of 00:00:00 [place] [facility] Td 2003-08-02 Completed University of 00:00:00 [place] [facility] Td 2003-08-02 Completed University of 00:00:00 [place] [facility] Td 2003-08-02 Completed University of 00:00:00 [place] [facility] Td 2003-08-02 Completed University of 00:00:00 [place] [facility] Td 2003-08-02 Completed University of 00:00:00 [place] [facility] Td 2003-08-02 Completed University of 00:00:00 [place] [facility] Td 2003-08-02 Completed University of 00:00:00 [place] [facility] Td 2003-08-02 Completed University of 00:00:00 [place] [facility] Td 2003-08-02 Completed University of 00:00:00 [place] [facility] Td 2003-08-02 Completed University of 00:00:00 [place] [facility] Td 2003-08-02 Completed University of 00:00:00 [place] [facility] Td 2003-08-02 Completed University of 00:00:00 [place] [facility] Td 2003-08-02 Completed University of 00:00:00 [facility] Vital Signs Vital Name Observation Time Observation Value Comments Source Systolic blood 2022-06-18 19:44:00 133 mm[Hg] [facility] Diastolic blood 2022-06-18 19:44:00 89 mm[Hg] Unive [facility] Heart rate 2022-06-18 19:43:00 85 /min [facility] Body height 2022-06-18 19:43:00 175.3 cm [facility] Body weight 2022-06-18 19:43:00 180.577 kg [facility] BMI 2022-06-18 19:43:00 58.79 kg/m2 [facility] Oxygen saturation 2022-06-18 19:43:00 100 /min [facility] in Arterial blood [facility] Br anch by Pulse oximetry Systolic blood 2022-03-19 18:15:00 121 mm[Hg] [facility] Diastolic blood 2022-03-19 18:15:00 74 mm[facility]Hg[facility] 2022-03-19 18:10:00 107 /min [facility] Body height 2022-03-19 18:10:00 175.3 cm [facility] Body weight 2022-03-19 18:10:00 177.538 kg [facility] BMI 2022-03-19 18:10:00 57.80 kg/m2 [facility] Oxygen saturation 2022-03-19 18:10:00 98 /min [facility] Medical Br anch by Pulse oximetry Procedures Procedure Date / Time Performed Performing Clinician Sourc e SCANNED LAB RESULTS 2022-03-07 05:01:00 Doctor Unassigned, No [facility] [place] Name [facility] Branch Encounters Start End Encounter Admission Attending Care Care Encounter Source Date/Time Date/Time Type Type Clinicians Facility Department ID 2022-09-18 2022-09-18 Outpatient Jaja SALAS [facility] [id number] Univers 13:30:00 13:30:00 ROSE sharitamarkos [facility] 2022-07-21 2022-07-21 Outpatient R MARITZA [facility] [id number] Univers 15:30:00 15:30:00 ROSE felipe [facility] 2022-06-22 2022-06-22 Telephone Maritza [facility] [id number] Univers 00:00:00 00:00:00 Rose [place] 350.1.13.10 it y of [place] 4.2.7.2.686 Jd as DENEEN?BLEA [id number] [address] MEDICAL OFFICE [facility] 2022-06-22 2022-06-22 Patient Maritza [facility] [id number] [id number] Univers 00:00:00 00:00:00 Secure Msg Rose HEALTH 350.1.13.10 ity of [place] 4.2.7.2.686 Jd as DENEEN?BLEA [phone] [address] MEDICAL OFFICE [facility] 2022-06-18 2022-06-18 Fleecer Lab, Ang - Regino [facility] 1.2.840.1 [id number] Univers 14:30:00 14:45:00 Visit Rose Salas HEALTH 350.1.13.10 ity of [place] 4.2.7.2.686 Jd as DENEEN?BLEA [id number] [place] [address] [facility] OFFICE [facility] 2022-06-18 2022-06-18 [facility] [id number] Univers 13:30:00 14:28:29 ROSE itmarkos of [facility] 2022-06-18 2022-06-18 [facility] [id number] Univers 13:30:00 14:28:29 Visit Rose [facility] 350.1.13.10 it y of [place] 4.2.7.2.686 Jd as DENEEN?BLEA [id number] [place] 044 [facility] 2022-04-23 2022-04-23 [facility] 1.2.840.114 [id number] Univers 00:00:00 00:00:00 Unique Hagan [place] 350.1.13.10 ity [facility] 4.2.7.2.[place] [id number] Ut dical [place] 134 [facility] 2022-03-24 2022-03-24 Fleecer Lab, Ang - Db [facility] 1.2.840.1 [id number] Univers 09:00:00 09:15:00 Visit Rose Salas 350.1.13.10 ity [facility] 4.2.7.2.686 Jd as DENEEN?BLEA [id number] [place] 353 [facility] 2022-03-24 2022-03-24 Outpatient R MARITZA [facility] [id number] Univers 09:00:00 09:00:00 ROSE itmarkos [facility] 2022-03-24 2022-03-24 Telephone [facility] [id number] Univers 00:00:00 00:00:00 Unique L [place] 350.1.13.10 ity [place] 4.2.7.2.[place] [id number] Ut dical [place] [address] [facility] 2022-03-24 2022-03-24 [facility] 1.2.840.114 [id number] Univers 00:00:00 00:00:00 Secure Msg Rose HEALTH 350.1.13.10 ity of [facility] 4.2.7.2.686 Jd as DENEEN?BLEA [id number] [facility] 044 [facility] OFFICE [facility] 2022-03-19 2022-03-19 Office [facility] 1.2.840.114 [id number] Univers 13:00:00 13:53:29 Visit Rose RAYGOZA 350.1.13.10 it y of [facility] 4.2.7.2.686 Jd as DENEEN?BLEA [id number] [address] 2022-03-19 2022-03-19 Outpatient R MARITZA [facility] [id number] Univers 13:00:00 13:53:29 ROSE sheriffmarkos [facility] 2022-03-19 2022-03-19 Outpatient R MARITZA [facility] [id number] Univers 13:00:00 13:00:00 ROSE itmarkos [facility] 2022-03-07 2022-03-07 Orders Doctor JENAE 1.2.840.114 [id number] Univers 00:00:00 00:00:00 Only Unassigned, MEGAN 350.1.13.10 ity of [place] [facility] 4.2.7.2.686 Jd as [id number] [address] 2022-03-05 2022-03-05 Outpatient R RODNEY [facility] [id number] Univers 13:30:00 14:09:33 UNIQUE itmarkos of [facility] 2022-03-05 2022-03-05 Office [facility] 1.2.840.114 [id number] Univers 13:30:00 14:09:33 Visit Unique ZULETA 350.1.13.10 it[place] of [place].2.[place] [id number] [facility] [address] 2022-03-05 2022-03-05 Telephone [facility] [id number] Univers 00:00:00 00:00:00 Unique ZULETA 350.1.13.10 ity [facility] 4.2.[place].2.[place] [id number] [facility] 134 [facility] 2022-03-05 2022-03-05 Letter Rodney, [facility] 1.2.840.114 [id number] Univers 00:00:00 00:00:00 (Out) Unique ZULETA 350.1.13.10 it[place] of [place] [id number] [facility] 134 [facility] 2021-09-12 2021-09-12 Laboratory Only, Adc Test [facility] 1.2.840. 114 [id number] Univers 13:30:00 13:45:00 Only Vijay Chauhan 350.1.13.10 ity of [place].2.7.2.[place] [phone] [facility] [address] [place] 2021-09-12 2021-09-12 Outpatient R JOYCE [facility] [id number] Univers 13:30:00 13:30:00 VIJAY sheriffy [facility] 2021-09-05 2021-09-05 Outpatient R RODNEY [facility] [id number] Univers 13:30:00 13:30:00 UNIQUE markos [facility] 2021-09-02 2021-09-02 Letter JENAE Chahal 1.2.840.114 [id number] Univers 00:00:00 00:00:00 (Out) Rachel GUZMAN 350.1.13.10 it y of [facility] 4.2.7.2.686 Jd as [id number] [facility] 0[address] [place] 2021-09-01 2021-09-01 Laboratory Only, Ang Db Test [facility] 1.2.8 40.114 [id number] Univers 13:45:00 14:00:00 Only Dell [facility] 350.1.13.10 ity of [place] 4.2.7.2.686 Jd as DENEEN?BLEA [phone] [address] MEDICAL [facility] 2021-09-01 2021-09-01 Outpatient R DELL [facility] [id number] Univers 13:45:00 13:45:00 KERLINE felipe [facility] 2021-03-11 2021-03-11 Outpatient R MARKELL [facility] [id number] Univers 13:00:00 13:00:00 AR felipe [facility] 2020-09-13 2020-09-13 Outpatient R ROSCOE [facility] [id number] Univers 09:00:00 09:00:00 WONASHLIE felipe o f [facility] 2020-08-13 2020-08-13 Outpatient R RODNEY [facility] [id number] Univers 13:30:00 13:30:00 UNIQUE [facility] 2020-08-09 2020-08-09 [facility] [id number] Univers 08:30:00 08:30:00 [facility] Results This patient has no known results.
[2022-06-27] MEDS ORDERED: BISACODYL 10 MG RECTAL SUPP ONE (19:38)
[2022-06-27] MEDS ORDERED: BISACODYL E.C. 5 MG TAB PO ONE (19:38)
[2022-06-27] MEDS ORDERED: SIMETHICONE 80 MG TAB ONE (19:39)
--- NOTE | 2022-06-27 20:39 | EDPHYS ---
Physician Documentation [facility] Name: Marva De Santiago Age: 31 yrs Sex: Female : 1990 Arrival Date: 06/27/2022 Time: 18:23 Bed 12 Private MD: ED Physician Maninder Byrne HPI: 06/27 20:05 This 31 yrs old Black Female presents to ER via Ambulatory with complaints of Chest snw Pain. 20:05 The patient presents with abdominal distention in the epigastric area, in the upper snw abdomen. Onset: The symptoms/episode began/occurred acutely. The symptoms do not radiate. Associated signs and symptoms: Pertinent positives: constipation. The symptoms are described as crampy, shooting. Severity of pain: At its worst the pain was moderate in the emergency department the pain is unchanged. The patient has not experienced similar symptoms in the past. pt feels like she is too full, decreased ease of bowel movements and feeling tight up through chest since taking new medications. 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 - Social history:: Smoking status: Patient denies any tobacco usage or history of. ROS: 20:04 Constitutional: Negative for fever, chills, and weight loss, Eyes: Negative for injury, snw pain, redness, and discharge, ENT: Negative for injury, pain, and discharge, Neck: Negative for injury, pain, and swelling, Respiratory: Negative for shortness of breath, cough, wheezing, and pleuritic chest pain, Back: Negative for injury and pain, : Negative for injury, bleeding, discharge, and swelling, MS/Extremity: Negative for injury and deformity, Skin: Negative for injury, rash, and discoloration, Neuro: Negative for headache, weakness, numbness, tingling, and seizure, Psych: Negative for depression, anxiety, suicide ideation, homicidal ideation, and hallucinations. 20:04 Cardiovascular: Positive for orthopnea, pressure under diaphragm. 20:04 Abdomen/GI: Positive for constipation, abdominal cramps, abdominal distension. Exam: 20:05 Constitutional: This is a well developed, well nourished patient who is awake, alert, snw and in no acute distress. Head/Face: Normocephalic, atraumatic. Eyes: Pupils equal round and reactive to light, extra-ocular motions intact. Lids and lashes normal. Conjunctiva and sclera are non-icteric and not injected. Cornea within normal limits. Periorbital areas with no swelling, redness, or edema. ENT: Nares patent. No nasal discharge, no septal abnormalities noted. Tympanic membranes are normal and external auditory canals are clear. Oropharynx with no redness, swelling, or masses, exudates, or evidence of obstruction, uvula midline. Mucous membranes moist. Neck: Trachea midline, no thyromegaly or masses palpated, and no cervical lymphadenopathy. Supple, full range of motion without nuchal rigidity, or vertebral point tenderness. No Meningismus. Chest/axilla: Normal chest wall appearance and motion. Nontender with no deformity. No lesions are appreciated. Cardiovascular: Regular rate and rhythm with a normal S1 and S2. No gallops, murmurs, or rubs. Normal PMI, no JVD. No pulse deficits. Respiratory: Lungs have equal breath sounds bilaterally, clear to auscultation and percussion. No rales, rhonchi or wheezes noted. No increased work of breathing, no retractions or nasal flaring. Back: No spinal tenderness. No costovertebral tenderness. Full range of motion. Skin: Warm, dry with normal turgor. Normal color with no rashes, no lesions, and no evidence of cellulitis. MS/ Extremity: Pulses equal, no cyanosis. Neurovascular intact. Full, normal range of motion. Neuro: Awake and alert, GCS 15, oriented to person, place, time, and situation. Cranial nerves II-XII grossly intact. Motor strength 5/5 in all extremities. Sensory grossly intact. Cerebellar exam normal. Normal gait. Psych: Awake, alert, with orientation to person, place and time. Behavior, mood, and affect are within normal limits. 20:05 Abdomen/GI: Inspection: obese Bowel sounds: normal, Palpation: nontender, in all quadrants. Vital Signs: 18:46 BP 137 / 85; Pulse 84; Resp 20; Temp 97; Pulse Ox 100% ; Weight 180.08 kg; Height 5 ft. kb3 9 in. (175.26 cm); Pain 0/10; 20:29 BP 133 / 84; Pulse 84; Resp 20; Pulse Ox 100% ; rv1 18:46 Body Mass Index 58.63 (180.08 kg, 175.26 cm) kb3 MDM: 19:46 Patient medically screened. snw 20:37 Data reviewed: vital signs, nurses notes. Data interpreted: Pulse oximetry: on room air snw is 100 %. Interpretation: normal. Counseling: I had a detailed discussion with the patient and/or guardian regarding: the historical points, exam findings, and any diagnostic results supporting the discharge/admit diagnosis, the need for outpatient follow up, to return to the emergency department if symptoms worsen or persist or if there are any questions or concerns that arise at home. Response to treatment: the patient's symptoms have markedly improved after treatment. Special discussion: Based on the history and exam findings, there is no indication for further emergent testing or inpatient evaluation. I discussed with the patient/guardian the need to see the primary care provider for further evaluation of the symptoms. 06/27 19:16 Order name: EKG; Complete Time: 19:17 kb3 06/27 19:16 Order name: EKG - Nurse/Tech; Complete Time: 19:45 kb3 EC:40 Rate is 80 beats/min. Rhythm is regular. QRS [place] is Normal. IN interval is normal. QRS snw interval is normal. QT interval is normal. Clinical impression: NSR w/ Non-specific ST/T Changes. Administered Medications: 19:45 Drug: Simethicone 240 mg Route: PO; kd3 20:55 Follow up: Response: No adverse reaction kd3 19:45 Drug: Dulcolax (bisacodyl) Delayed Release Tablet 5 mg Route: PO; kd3 20:55 Follow up: Response: No adverse reaction kd3 19:45 Drug: Bisacodyl Suppository 10 mg Route: IN; kd3 20:55 Follow up: Response: No adverse reaction kd3 Disposition: 21:11 Co-signature as Attending Physician, Maninder Byrne MD I agree with the assessment and rt plan of care. Disposition Summary: 06/27/22 20:38 Discharge Ordered Location: Home snw Condition: Stable snw Diagnosis - Slow transit constipation snw - Chest pain, unspecified snw Followup: snw - With: Emergency Department - When: As needed - Reason: Worsening of condition Followup: snw - With: Private Physician - When: 2 - 3 days - Reason: Recheck today's complaints, Continuance of care, Re-evaluation by your physician Discharge Instructions: - Discharge Summary Sheet snw - Nonspecific Chest Pain, Adult snw - Constipation, Adult snw - Aspirin and Your Heart snw - Form - Blood Pressure Record Sheet snw Forms: - Medication Reconciliation Form snw - Thank You Letter snw - Antibiotic Education snw - Prescription Opioid Use snw Prescriptions: - Gas-X Extra Strength - take 1 unit by ORAL route 2-3 times daily; 30 capsule; Refills: 0, Product snw Selection Permitted - Lactulose 10 gram/15 mL Oral Solution - take 30 milliliters by ORAL route once daily; 300 milliliter; Refills: 0, snw Product Selection Permitted Signatures: Tejal Lee FNP-David MACHINE EGG WASHER-Csnw Edelmira Jackson, RN RN kd3 Vania Harp, RN RN kb3 Maninder Byrne MD MD rt
--- NOTE | 2022-06-27 20:39 | ER ---
Nurse's Notes [facility] Name: Marva De Santiago Age: 31 yrs Sex: Female : 1990 Arrival Date: 06/27/2022 Time: 18:23 Bed 12 Private MD: Diagnosis: Slow transit constipation;Chest pain, unspecified Presentation: 06/27 18:46 Chief complaint: Patient states: Pt reports her PCP started her on Topamax and kb3 butropium on for anxiety and weight loss. States she became constipated with intermittent chest pressure so she stopped the medications on , but remains constipated. Coronavirus screen: Vaccine status: Patient reports receiving the 2nd dose of the covid vaccine. Client denies travel out of the [place] in the last 14 days. Ebola Screen: Patient negative for fever greater than or equal to 101.5 degrees Fahrenheit, and additional compatible Ebola Virus Disease symptoms Patient denies exposure to infectious person. Patient denies travel to an Ebola-affected area in the 21 days before illness onset. Initial Sepsis Screen: Does the patient meet any 2 criteria? No. Patient's initial sepsis screen is negative. Does the patient have a suspected source of infection? No. Patient's initial sepsis screen is negative. Risk Assessment: Do you want to hurt yourself or someone else? Patient reports no desire to harm self or others. Onset of symptoms was June 22, 2022. 18:46 Method Of Arrival: Ambulatory kb3 18:46 Acuity: NORBERT 3 kb3 Triage Assessment: 18:49 General: Appears in no apparent distress. Behavior is calm, cooperative. Pain: kb3 Complains of pain in chest Pain does not radiate. Pain currently is 0 out of 10 on a pain scale. Quality of pain is described as pressure. Cardiovascular: Reports chest pain, nausea, Heart tones present Capillary refill < 3 seconds Patient's skin is warm and dry. Rhythm is regular. 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 - Social history:: Smoking status: Patient denies any tobacco usage or history of. Screenin:45 Abuse screen: Denies threats or abuse. Denies injuries from another. Nutritional kd3 screening: No deficits noted. Tuberculosis screening: No symptoms or risk factors identified. Fall Risk None identified. Assessment: 19:45 General: Appears in no apparent distress. comfortable, Behavior is calm, cooperative. kd3 Pain: Pain began gradually. Neuro: Level of Consciousness is awake, alert, obeys commands, Oriented to person, place, time, situation. Respiratory: Airway is patent Trachea midline Respiratory effort is even, unlabored, Respiratory pattern is regular, symmetrical. 20:54 Reassessment: pt left without signing paperwork. instructions delivered by Tejal. kd3 Vital Signs: 18:46 BP 137 / 85; Pulse 84; Resp 20; Temp 97; Pulse Ox 100% ; Weight 180.08 kg; Height 5 ft. kb3 9 in. (175.26 cm); Pain 0/10; 20:29 BP 133 / 84; Pulse 84; Resp 20; Pulse Ox 100% ; rv1 18:46 Body Mass Index 58.63 (180.08 kg, 175.26 cm) kb3 ED Course: 18:23 Patient arrived in ED. jj6 18:49 Triage completed. kb3 18:49 Arm band placed on right wrist. kb3 19:17 Tejal Lee FNP-C is [facility]. snw 19:17 Maninder Byrne MD is Attending Physician. snw 19:28 Edelmira Jackson, MAXINE is Primary Nurse. kd3 19:45 Patient has correct armband on for positive identification. Bed in low position. Call kd3 light in reach. Pulse ox on. 19:46 No provider procedures requiring assistance completed. Patient maintains SpO2 kd3 saturation greater than 95% on room air. 20:55 Patient did not have IV access during this emergency room visit. kd3 Administered Medications: 19:45 Drug: Simethicone 240 mg Route: PO; kd3 20:55 Follow up: Response: No adverse reaction kd3 19:45 Drug: Dulcolax (bisacodyl) Delayed Release Tablet 5 mg Route: PO; kd3 20:55 Follow up: Response: No adverse reaction kd3 19:45 Drug: Bisacodyl Suppository 10 mg Route: DE; kd3 20:55 Follow up: Response: No adverse reaction kd3 Medication: 19:45 VIS not applicable for this client. kd3 Outcome: 20:38 Discharge ordered by . peewee 20:54 Discharged to home ambulatory. kd3 20:54 Condition: stable 20:54 Discharge instructions given to patient, Instructed on discharge instructions, follow up and referral plans. Demonstrated understanding of instructions, follow-up care. 20:55 Patient left the ED. kd3 Signatures: Tejal Lee, ECONOMIC DEVELOPMENT COORDINATOR-C ECONOMIC DEVELOPMENT COORDINATOR-Csnw Kate Jj [email or web address] Edelmira Jackson RN RN kd3 Vania Harp RN RN kb3 Kera White rv1
[2022-06-27 21:10] VITALS: BP 133/84; TEMP 97; O2SAT 100
--- NOTE | 2022-06-29 12:52 | EKG ---
Test Date: 2022-06-27 Test Time: 19:37:56 Upholstery Trimmer: RV MEASUREMENT RESULTS: Intervals: Rate: 80 AL: 152 QRSD: 96 QT: 392 QTc: 452 [place]: P: 55 AL: 152 QRS: 34 T: 31 INTERPRETIVE STATEMENTS: Normal sinus rhythm with sinus arrhythmia Normal ECG Compared to ECG 12/08/2021 16:20:10 Myocardial infarct finding no longer present Electronically Signed On 06-29-22 12:49:49 SYSTEMS LIBRARIAN by Kristopher Almeida
== END 2022-06-27 20:55 | disposition home or self-care (01) ==
LOC: ER 18:19
DX: R07.89 Other chest pain (principal); K59.01 Slow transit constipation
CPT/HCPCS: 93005; 99284

== ENCOUNTER 2024-08-26 13:31 | Emergency (ER) | payer SELFPAY ==
--- OUTSIDE RECORDS SUMMARY | 2024-08-26 13:34 | XMS REPORT | Continuity of Care Document ---
Author Name Unknown Address [address] [facility] [address] [place] [address] [facility] Address [address] [facility] [address] [place] [address] Care Team Providers Care Insurance Application Investigator Name Role Phone ROSE SALAS Primary Care Physician Unavailab Tristin Bee Attending Clinician Unavailable Tristin REYNOLDS Attending Clinician Unavailable Tristin Mcdaniel Attending Clinician [phone] Rocio Lloyd MA Attending Clinician UnavailUNIQUE Duran Attending Clinician Unavailable ROSE SALAS Attending Clinician Unavailable Rose Mcneil Attending Clinician [phone] Doctor Unassigned, Egan Attending Clinician U navailable Lab, Ang - Db Attending Clinician Unavailable Unique Stevens MD Attending Clinician [phone] Only, Adc Test Attending Clinician Unavailable Vijay Chauhan MD Attending Clinician [phone] VIJAY CHAUHAN Attending Clinician Unavailable Rachel Chahal RN Attending Clinician Unavailab le Only, Ang Db Test Attending Clinician UnavailKerline Altamirano MD Attending Clinician [phone] KERLINE SHARPE Attending Clinician Unavailable AR GUILLAUME Attending Clinician Unavailable CHRISTY MALHOTRA Attending Clinician Unavailjoanie goddard Payers Payer Name Policy Type Policy Number Effective Date Expirati on Date Source [facility] [id number] 2022 00:00:00 Problems Condition Name Condition Details Condition Category Status Onset Date Resolution Date Last Treatment Date Treating Clinician Comments Source Obesity, morbid Obesity, morbid Disease Active 05-01 00:00: 00 [facility] Genital labial ulcer Genital labial ulcer Disease Active 05-01 00:00: 00 [facility] BMI 50.0-59.9, adult BMI 50.0-59.9, adult Disease Active [facility] Liveborn by Liveborn by Disease Resolve d 2015-08 00:00: 2020-08-13 00:00:00 2020-08-13 14:24:36 [facility] 39 weeks gestation of 39 weeks gestation of Disease Resolve d 2015-08 00:00: 2020-08-13 00:00:00 2020-08-13 14:24:34 [facility] Encounter for sterilizat ion Encounter for sterilizat ion Disease Resolve d 2015-08 00:00: 2020-08-13 00:00:00 2020-08-13 14:24:35 [facility] HSV-2 infection complicati ng , third trimester HSV-2 infection complicati ng , third trimester Disease Resolve d 2013-08 0 00:00: 00 2020-08-13 00:00:00 2022-02-15 00:32:27 [facility] Anemia of mother in , antepartum Anemia of mother in , antepartum Disease Resolve d 2013-08 00:00: 2020-08-13 00:00:00 2022-02-15 00:32:23 [facility] Obesity complicati ng in third trimester Obesity complicati ng in third trimester Disease Resolve d 05-01 00:00: 00 2020-08-13 00:00:00 2020-08-13 14:24:27 [facility] Supervisio n of high-risk with insufficie nt care Supervisio n of high-risk with insufficie nt care Disease Resolve d 05-01 00:00: 00 2020-08-13 00:00:00 2022-02-15 00:32:22 [facility] Dysuria Dysuria Disease Resolve d 05-01 00:00: 00 2020-08-13 00:00:00 2020-08-13 14:24:29 [facility] Proteinuri a complicati ng , third trimester Proteinuri a complicati ng , third trimester Disease Resolve d 05-01 00:00: 00 2020-08-13 00:00:00 2020-08-13 14:24:30 [facility] High-risk High-risk Disease Resolve d 11-01 00:00: 00 2020-08-13 00:00:00 2022-02-15 00:23:48 [facility] H/O: H/O: Disease Resolve d 11-01 00:00: 00 2020-08-13 00:00:00 2022-02-15 00:23:48 [facility] Morbid obesity Morbid obesity Disease Resolve d 11-01 00:00: 00 2014-05-01 00:00:00 2016-05-13 10:12:04 [facility] Allergies, Adverse Reactions, Alerts Allergy Name Allergy Type Status Severity Reaction(s) Onset Date Inactive Date Treating Clinician Comments Source NO KNOWN ALLERGIE S Drug Class Active [facility] Social History Social Habit Start Date Stop Date Quantity Comments Source [facility] of tobacco use Cigarette Smoker [facility] Exposure to SARS-CoV-2 (event) 2022-07-13 00:00:00 2022-07-23 11:06:00 Not sure [facility] Alcoholic beverage intake 2022-07-23 00:00:00 2022-07-23 00:00:00 Current non-drinker of alcohol (finding) [facility] Alcohol intake 2022-07-23 00:00:00 2022-07-23 00:00:00 Current non-drinker of alcohol (finding) [facility] History of Social function 2022-03-19 00:00:00 2022-03-19 00:00:00 [facility] Tobacco use and exposure 2022-03-05 00:00:00 2022-03-05 00:00:00 Smokeless tobacco non-user [facility] Tobacco Comment 2022-03-05 00:00:00 2022-03-05 00:00:00 Quit 09/2021 [facility] Sex assigned at 1990 00:00:00 1990 00:00:00 [facility] Smoking Status Start Date Stop Date Source Ex-smoker 2022-03-05 00:00:00 2022-03-05 [facility] Ordered Medication Name Filled Medication Name Start Date Stop Date Current Medication? Ordering Clinician Indication Dosage Frequency Signature (SIG) Comments Components Source semaglutide (RYBELSUS) 3 mg Tab 2021-08 00:00: 00 Yes [id number] 1{tbl} Take 1 tablet by mouth daily. [facility] buPROPion SR (WELLBUTRIN SR) 150 mg SR tablet 2021-08 00:00: 00 Yes [id number] 150mg Take 1 tablet by mouth in the morning and 1 tablet in the evening. [facility] topiramate (TOPAMAX) 50 mg tablet 2021-08 00:00: 00 Yes [id number] 50mg Take 1 tablet by mouth in the morning. [facility] metroNIDAZO LE 500 mg tablet 03-10 00:00: 00 Yes [id number] 500mg Take 1 tablet by mouth every 12 (twelve) hours. [facility] Immunizations Ordered Immunization Name Filled Immunization Name Date Status Comments Source SARS-COV-2 COVID-19 PFIZER VACCINE 2021-04-22 00:00:00 Completed SARS-COV-2 COVID-19 PFIZER VACCINE 2021-04-01 00:00:00 Completed [facility] Rubella 2012 00:00:00 Completed [facility] Rubella 2012 00:00:00 Completed [facility] Rubella 2012 00:00:00 Completed [facility] Rubella 2012 00:00:00 Completed [facility] Rubella 2012 00:00:00 Completed [facility] Rubella 2012 00:00:00 Completed [facility] Rubella 2012 00:00:00 Completed [facility] Rubella 2012 00:00:00 Completed [facility] Rubella 2012 00:00:00 Completed [facility] Rubella 2012 00:00:00 Completed [facility] Rubella 2012 00:00:00 Completed [facility] Rubella 2012 00:00:00 Completed [facility] Rubella 2012 00:00:00 Completed Varicella (varivax)(chicken pox) 2012-10-05 00:00:00 Completed [facility] Varicella (varivax)(chicken pox) 2012-10-05 00:00:00 Completed [facility] Varicella (varivax)(chicken pox) 2012-10-05 00:00:00 Completed [facility] Varicella (varivax)(chicken pox) 2012-10-05 00:00:00 Completed [facility] Varicella (varivax)(chicken pox) 2012-10-05 00:00:00 Completed [facility] Varicella (varivax)(chicken pox) 2012-10-05 00:00:00 Completed [facility] Varicella (varivax)(chicken pox) 2012-10-05 00:00:00 Completed [facility] Varicella (varivax)(chicken pox) 2012-10-05 00:00:00 Completed [facility] Varicella (varivax)(chicken pox) 2012-10-05 00:00:00 Completed [facility] Varicella (varivax)(chicken pox) 2012-10-05 00:00:00 Completed [facility] Varicella (varivax)(chicken pox) 2012-10-05 00:00:00 Completed [facility] Varicella (varivax)(chicken pox) 2012-10-05 00:00:00 Completed [facility] Varicella (varivax)(chicken pox) 2012-10-05 00:00:00 Completed [facility] Td 2003-08-02 00:00:00 Completed [facility] Td 2003-08-02 00:00:00 Completed [facility] Td 2003-08-02 00:00:00 Completed [facility] Td 2003-08-02 00:00:00 Completed [facility] Td 2003-08-02 00:00:00 Completed [facility] Td 2003-08-02 00:00:00 Completed [facility] Td 2003-08-02 00:00:00 Completed [facility] Td 2003-08-02 00:00:00 Completed [facility] Td 2003-08-02 00:00:00 Completed [facility] Td 2003-08-02 00:00:00 Completed [facility] TD, NOS 2003-08-02 00:00:00 Completed [facility] TD, NOS 2003-08-02 00:00:00 Completed [facility] TD, NOS 2003-08-02 00:00:00 Completed TD, NOS Unknown Completed [facility] Varicella (varivax)(chicken pox) Unknown Completed [facility] Rubella Unknown Completed [facility] SARS-COV-2 COVID-19 PFIZER VACCINE Unknown Completed [facility] Vital Signs Vital Name Observation Time Observation Value Comments S ource Systolic blood pressure 2024-06-22 02:15:00 147 mm[Hg] [facility] Diastolic blood pressure 2024-06-22 02:15:00 103 mm[Hg] [facility] Heart rate 2024-06-22 00:53:00 66 /min [facility] Body temperature 2024-06-22 00:53:00 36.78 Rere [facility] Respiratory rate 2024-06-22 00:53:00 18 /min [facility] Body height 2024-06-22 00:53:00 175.3 cm [facility] Body weight 2024-06-22 00:53:00 190.193 kg [facility] BMI 2024-06-22 00:53:00 61.92 kg/m2 [facility] Oxygen saturation in Arterial blood by Pulse oximetry 2024-06-22 00:53:00 99 /min [facility] Systolic blood pressure 2022-07-23 17:19:00 133 mm[Hg] [facility] Diastolic blood pressure 2022-07-23 17:19:00 85 mm[Hg] [facility] Heart rate 2022-07-23 17:19:00 90 /min [facility] Body height 2022-07-23 17:19:00 175.3 cm [facility] Body weight 2022-07-23 17:19:00 180.35 kg [facility] BMI 2022-07-23 17:19:00 58.72 kg/m2 Univ ersity [facility] Oxygen saturation in Arterial blood by Pulse oximetry 2022-07-23 17:19:00 98 /min [facility] Systolic blood pressure 2022-06-18 19:44:00 133 mm[Hg] [facility] Diastolic blood pressure 2022-06-18 19:44:00 89 mm[Hg] [facility] Heart rate 2022-06-18 19:43:00 85 /min [facility] Body height 2022-06-18 19:43:00 175.3 cm [facility] Body weight 2022-06-18 19:43:00 180.577 kg [facility] BMI 2022-06-18 19:43:00 58.79 kg/m2 Univ ersity [facility] Oxygen saturation in Arterial blood by Pulse oximetry 2022-06-18 19:43:00 100 /min [facility] Systolic blood pressure 2022-03-19 18:15:00 121 mm[Hg] [facility] Diastolic blood pressure 2022-03-19 18:15:00 74 mm[Hg] [facility] Heart rate 2022-03-19 18:10:00 107 /min [facility] Body height 2022-03-19 18:10:00 175.3 cm [facility] Body weight 2022-03-19 18:10:00 177.538 kg [facility] BMI 2022-03-19 18:10:00 57.80 kg/m2 [facility] Oxygen saturation in Arterial blood by Pulse oximetry 2022-03-19 18:10:00 98 /min [facility] Procedures Procedure Date / Time Performed Performing Clinician Source RAPID STREP SCREEN FOR GROUP A 2024-06-22 02:17:00 Tristin Reynolds [facility] INFLUENZA A/B RSV COVID NAAT 2024-06-22 02:17:00 Tristin Reynolds [facility] INSURANCE CORRESPONDENCE 2022-06-23 06:01:00 Doc tor Unassigned, Egan [facility] SCANNED LAB RESULTS 2022-03-07 05:01:00 Doctor U ashleysigned, Egan [facility] Encounters Start Date/Time End Date/Time Encounter Type Admission Type Attending Clinicians Care Facility Care Department Encounter ID Source 2024-06-21 18:55:00 2024-06-21 22:55:00 Emergency X Tristin REYNOLDS [facility] ERT [id number] [facility] 2024-06-21 18:55:00 2024-06-21 22:55:00 Emergency Tristin Reynolds [facility] AT COUNT INCLUDES [facility] 1.2.840.114 350.1.13.10 4.2.7.2.686 [id number] [facility] 2023-06-09 00:00:00 2023-06-09 00:00:00 Case Management Rocio Lloyd 1.2.840.114 350.1.13.10 4.2.7.2.686 [id number] [facility] 2022-09-18 13:30:00 2022-09-18 13:30:00 Outpatient ROSE WELCH [facility] [id number] [facility] 2022-07-31 12:58:55 2022-07-31 12:58:55 Outpatient [facility] [id number] Govind George Tomas 2022-07-30 11:30:00 2022-07-30 11:30:00 Outpatient ROSE WELCH [facility] [id number] [facility] 2022-07-23 11:00:00 2022-07-23 11:29:56 Outpatient R ROSE SALAS [facility] [id number] [facility] 2022-07-23 11:00:00 2022-07-23 11:29:56 [facility] 1.840.114 350.1.13.10 4.2.7.2.686 [id number] [facility] 2022-07-21 15:30:00 2022-07-21 15:30:00 Outpatient R ROSE SALAS [facility] [id number] [facility] 2022-06-23 00:00:00 2022-06-23 00:00:00 Orders Only Doctor Unassigned, Egan [facility] 1.84.114 350.1.13.10 4.2.7.2.686 [id number] [facility] 2022-06-22 00:00:00 2022-06-22 00:00:00 [facility] 1.84.114 350.1.13.10 4.2.7.2.686 [id number] [facility] 2022-06-22 00:00:00 2022-06-22 00:00:00 Patient Secure Msg [facility] 1.84.114 350.1.13.10 4.2.7.2.686 [id number] [facility] 2022-06-18 14:30:00 2022-06-18 14:45:00 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 Lab, Juan Antonio - Regino [facility] 1.84.114 350.1.13.10 4.2.7.2.686 [id number] [facility] 2022-06-18 13:30:00 2022-06-18 14:28:29 Outpatient R ROSE SALAS [facility] [id number] [facility] 2022-06-18 13:30:00 2022-06-18 14:28:29 [facility] 1.2.840.114 350.1.13.10 4.2.7.2.686 [id number] [facility] 2022-04-23 00:00:00 2022-04-23 00:00:00 Refill AdUnique oliver [facility] 1.2.840.114 350.1.13.10 4.2.7.2.686 [id number] [facility] 2022-03-24 09:00:00 2022-03-24 09:15:00 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 Lab, Juan Antonio Lacy Maritza [facility] 1.2.840.114 350.1.13.10 4.2.7.2.686 [id number] [facility] 2022-03-24 09:00:00 2022-03-24 09:00:00 Outpatient R ROSE SALAS [facility] [id number] [facility] 2022-03-24 00:00:00 2022-03-24 00:00:00 Telephone AdumLiUnique Danya [facility] 1.2.840.114 350.1.13.10 4.2.7.2.686 [id number] [facility] 2022-03-24 00:00:00 2022-03-24 00:00:00 Patient Secure Msg [facility] 1.2840.114 350.1.13.10 4.2.7.2.686 [id number] [facility] 2022-03-19 13:00:00 2022-03-19 13:53:29 Office Visit Rose [facility] 1.2840.114 350.1.13.10 4.2.7.2.686 [id number] [facility] 2022-03-19 13:00:00 2022-03-19 13:53:29 [facility] [id number] 2022-03-19 13:00:00 2022-03-19 13:00:00 Outpatient R ROSE SALAS [facility] [id number] [facility] 2022-03-07 00:00:00 2022-03-07 00:00:00 Orders Only Doctor Unassigned, Egan [facility] 1.840.114 350.1.13.10 4.2.7.2.686 [id number] [facility] 2022-03-05 13:30:00 2022-03-05 14:09:33 Outpatient R MARCALPHONSO UNIQUE [facility] [id number] [facility] 2022-03-05 13:30:00 2022-03-05 14:09:33 Office Visit Rodney Unique Hagan [facility] 1.2840.114 350.1.13.10 4.2.7.2.686 [id number] [facility] 2022-03-05 00:00:00 2022-03-05 00:00:00 Telephone Adum, Unique Hagan [facility] 1.2840.114 350.1.13.10 4.2.7.2.686 [id number] [facility] 2022-03-05 00:00:00 2022-03-05 00:00:00 Letter (Out) MarcUnique oliver [facility] 1.2.840.114 350.1.13.10 4.2.7.2.686 [id number] [facility] 2021-09-12 13:30:00 2021-09-12 13:45:00 Laboratory Only Only, Adc Nedra Vijay Chauhan [facility] 1.2.840.114 350.1.13.10 4.2.7.2.686 [id number] [facility] 2021-09-12 13:30:00 2021-09-12 13:30:00 Outpatient VIJAY PEDRAZA [facility] [id number] [facility] 2021-09-05 13:30:00 2021-09-05 13:30:00 Outpatient Jaja STEVENSUNIQUE [facility] [id number] [facility] 2021-09-02 00:00:00 2021-09-02 00:00:00 Letter (Out) Rachel Chahal [facility] 1.2.840.114 350.1.13.10 4.2.7.2.686 [id number] [facility] 2021-09-01 13:45:00 2021-09-01 14:00:00 Laboratory Only Only, Ang Db Test Kerline Sharpe [facility] 1.2.840.114 350.1.13.10 4.2.7.2.686 [id number] [facility] 2021-09-01 13:45:00 2021-09-01 13:45:00 Outpatient KERLINE PRINCE [facility] [id number] [facility] 2021-03-11 13:00:00 2021-03-11 13:00:00 Outpatient AR CUMMINGS [facility] [id number] [facility] 2020-09-13 09:00:00 2020-09-13 09:00:00 Outpatient CHRISTY GARRIDO [facility] [id number] [facility] 2020-08-13 13:30:00 2020-08-13 13:30:00 Outpatient UNIQUE WILLIS [facility] [id number] [facility] 2020-08-09 08:30:00 2020-08-09 08:30:00 Outpatient Jaja STEVENS UNIQUE [facility] [id number] [facility]
[2024-08-26] MEDS ORDERED: KETOROLAC 30 MG/ML INJ ONE (13:58)
[2024-08-26] MEDS ORDERED: AMOX/K CLAV 875 MG TAB ONE (13:58)
--- NOTE | 2024-08-26 14:00 | ER ---
Nurse's Notes [facility] Name: Marva De Santiago Age: 33 yrs Sex: Female : 1990 Arrival Date: 08/26/2024 Time: 13:31 Bed IW6 Private MD: Diagnosis: Periapical abscess without sinus Presentation: 08/26 13:52 Chief complaint: Right upper tooth pain x 1 week. Coronavirus screen: At this time, the hb client does not indicate any symptoms associated with coronavirus-19. Ebola Screen: Patient positive for the following Ebola Virus Disease associated symptoms:. Initial Sepsis Screen: Does the patient meet any 2 criteria? No. Patient's initial sepsis screen is negative. Does the patient have a suspected source of infection? No. Patient's initial sepsis screen is negative. Risk Assessment: Do you want to hurt yourself or someone else? Patient reports no desire to harm self or others. Onset of symptoms was August 19, 2024. 13:52 Method Of Arrival: Ambulatory hb 13:52 Acuity: NORBERT 4 hb Triage Assessment: 13:54 General: Appears in no apparent distress. Behavior is calm, cooperative. Pain: Pain hb currently is 8 out of 10 on a pain scale. EENT: Reports pain in upper right lateral incisor. Historical: - Allergies: 13:53 No Known Drug Allergies; hb - Home Meds: 13:53 None [Active]; hb - PMHx: 13:53 Enlarged Heart; hb - PSHx: 13:53 section; hb - Immunization history:: Adult Immunizations up to date. - Infectious Disease History:: Denies. - Social history:: Smoking status: Patient denies any tobacco usage or history of. Screenin:54 [facility] ED Fall Risk Assessment (Adult) History of falling in the last 3 months, hb including since admission No falls in past 3 months (0 pts) Confusion or Disorientation No (0 pts) Intoxicated or Sedated No (0 pts) Impaired Gait No (0 pts) Mobility Assist Device Used No (0 pt) Altered Elimination No (0 pt) Score/Fall Risk Level 0 - 2 = Low Risk Oriented to surroundings, Maintained a safe environment. Abuse screen: Denies threats or abuse. Denies injuries from another. Nutritional screening: No deficits noted. Tuberculosis screening: No symptoms or risk factors identified. Assessment: 13:54 General: See triage assessment . hb Vital Signs: 13:52 BP 152 / 88; Pulse 79; Resp 18; Temp 97; Pulse Ox 100% on R/A; Weight 180.53 kg; Height hb 5 ft. 9 in. ; Pain 8/10; 14:07 BP 146 / 78; Pulse 71; Resp 15; Pulse Ox 99% ; hb 13:52 Body Mass Index 58.77 (180.53 kg, 175.26 cm) hb 13:52 Pain Scale: Adult hb ED Course: 13:33 Patient arrived in ED. mr 13:36 Renu Viramontes FNP-C [facility]. kb 13:36 Maninder Byrne MD is Attending Physician. kb 13:53 Triage completed. hb 13:54 Arm band placed on. hb 13:54 Patient has correct armband on for positive identification. Provided Education on: hb medications, follow up. 13:54 No provider procedures requiring assistance completed. Patient did not have IV access hb during this emergency room visit. Administered Medications: 14:07 Drug: Amoxicillin-Clavulanate PO 875 mg PO once Route: PO; hb 14:11 Follow up: Response: Medication administered at discharge. hb 14:07 Drug: Ketorolac IM 30 mg IM once Route: IM; Site: right deltoid; hb 14:11 Follow up: Response: Medication administered at discharge. hb Medication: 13:54 VIS not applicable for this client. hb Outcome: 14:00 Discharge ordered by MD. kb 14:07 Discharged to home ambulatory, hb 14:07 Condition: stable 14:07 Discharge instructions given to patient, Instructed on discharge instructions, follow up and referral plans. medication usage, Demonstrated understanding of instructions, follow-up care, medications, Prescriptions given X 1, 14:12 Patient left the ED. hb Signatures: Renu Viramontes FNP-C CLASSIFICATION ANALYST-Sabrina Abdalla, Reg Reg Pari Segundo, RN RN hb
--- NOTE | 2024-08-26 14:00 | EDPHYS ---
Physician Documentation [facility] [place] Name: Marva De Santiago Age: 33 yrs Sex: Female : 1990 Arrival Date: 08/26/2024 Time: 13:31 Bed IW6 Private MD: ED Physician Maninder Byrne HPI: 08/26 16:59 This 33 yrs old Black Female presents to ER via Ambulatory with complaints of Toothache.kb 14:12 Pt is a 33 year old female who presents for toothache that has been intermittent for kb one week and worse today. dEnies fever, chills. States the pain radiates to nose. . Historical: - Allergies: 13:53 No Known Drug Allergies; hb - Home Meds: 13:53 None [Active]; hb - PMHx: 13:53 Enlarged Heart; hb - PSHx: 13:53 section; hb - Immunization history:: Adult Immunizations up to date. - Infectious Disease History:: Denies. - Social history:: Smoking status: Patient denies any tobacco usage or history of. ROS: 14:11 Constitutional: As per HPI kb Exam: 14:11 Constitutional: This is a well developed, well nourished patient who is awake, alert, kb and in no acute distress. Head/Face: Normocephalic, atraumatic. ENT: Moist Mucous membranes Cardiovascular: Regular rate Respiratory: Respirations even and unlabored. No increased work of breathing. Talking in full sentences Skin: Warm, dry with normal turgor. Normal color. MS/ Extremity: Pulses equal, no cyanosis. Neurovascular intact. Full, normal range of motion. Neuro: Awake and alert, GCS 15, oriented to person, place, time, and situation. 14:11 ENT: Dental exam: gum swelling, that is mild, specifically in the upper right lateral incisor (#7), pain, Vital Signs: 13:52 BP 152 / 88; Pulse 79; Resp 18; Temp 97; Pulse Ox 100% on R/A; Weight 180.53 kg; Height hb 5 ft. 9 in. ; Pain 8/10; 14:07 BP 146 / 78; Pulse 71; Resp 15; Pulse Ox 99% ; hb 13:52 Body Mass Index 58.77 (180.53 kg, 175.26 cm) hb 13:52 Pain Scale: Adult hb MDM: 13:36 Medical Screening Exam initiated kb 14:11 Differential diagnosis: dental caries, gingivitis, dental abscess, pericoronitis, kb aphthous ulcers. Data reviewed: vital signs, nurses notes. Counseling: I had a detailed discussion with the patient and/or guardian regarding the historical points, exam findings, and any diagnostic results supporting the discharge/admit diagnosis, the need for outpatient follow up, a dentist, to return to the emergency department if symptoms worsen or persist or if there are any questions or concerns that arise at home. Administered Medications: 14:07 Drug: Amoxicillin-Clavulanate PO 875 mg PO once Route: PO; 14:11 Follow up: Response: Medication administered at discharge. 14:07 Drug: Ketorolac IM 30 mg IM once Route: IM; Site: right deltoid; 14:11 Follow up: Response: Medication administered at discharge. Disposition: 14:30 Co-signature as Attending Physician, Maninder Byrne MD I reviewed the patient's care rt provided by the Advanced Practice Provider and agree with the diagnosis and treatment plan. Disposition Summary: 08/26/24 14:00 Discharge Ordered Notes: Location: Home kb Condition: Stable kb Diagnosis - Periapical abscess without sinus kb Followup: kb - With: Emergency Department - When: As needed - Reason: Worsening of condition Followup: kb - With: Private Physician - When: 2 - 3 days - Reason: Recheck today's complaints, Continuance of care, Re-evaluation by your physician Discharge Instructions: - Discharge Summary Sheet kb - Dental Pain, [id number] kb - Dental Abscess, [id number] kb Forms: - Medication Reconciliation Form kb - Antibiotic Education kb - Prescription Opioid Use kb - Patient Portal Instructions kb - Leadership Thank You Letter kb Prescriptions: - Augmentin 875-125 mg Oral Tablet - take 1 tablet ORAL route every 12 hours for 10 days; 20 tablet; Refills: 0, kb Product Selection Permitted Signatures: Renu Viramontes FNP-C FNP-Ckb Baxter, Heather RN RN Maninder Carlisle MD MD rt
[2024-08-26 15:43] VITALS: TEMP 97
[2024-08-26 15:45] VITALS: BP 146/78; O2SAT 99
== END 2024-08-26 14:12 | disposition home or self-care (01) ==
LOC: ER 13:31
DX: K04.7 Periapical abscess without sinus (principal)
CPT/HCPCS: 96372; 99284

== ENCOUNTER 2024-11-21 12:21 | Emergency (ER) | payer SELFPAY ==
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
--- NOTE | 2024-11-21 12:37 | ER ---
Nurse's Notes [facility] Name: Marva De Santiago Age: 34 yrs Sex: Female : 1990 Arrival Date: 11/21/2024 Time: 12:21 Bed IW3 Private MD: Diagnosis: Dental infection;Tooth pain Presentation: 11/21 12:31 Chief complaint: Patient states: Pain to front top teeth onset last night. Coronavirus cm10 screen: Client denies travel out of the [place] in the last 14 days. Ebola Screen: Patient denies travel to an Ebola-affected area in the 21 days before illness onset. Initial Sepsis Screen: Does the patient meet any 2 criteria? No. Patient's initial sepsis screen is negative. Does the patient have a suspected source of infection? No. Patient's initial sepsis screen is negative. Risk Assessment: Do you want to hurt yourself or someone else? Patient reports no desire to harm self or others. Onset of symptoms was November 20, 2024. 12:31 Method Of Arrival: Ambulatory cm10 12:31 Acuity: NORBERT 4 cm10 Triage Assessment: 12:33 General: Appears in no apparent distress. uncomfortable, Behavior is calm, cooperative. cm10 Pain: Complains of pain in upper right lateral incisor and upper left lateral incisor Pain currently is 8 out of 10 on a pain scale. Quality of pain is described as pressure, throbbing. EENT: Dental caries noted in upper right lateral incisor (#7) and upper left lateral incisor (#10) Reports pain in upper right lateral incisor and upper left lateral incisor. Neuro: No deficits noted. Level of Consciousness is awake, alert, obeys commands, Oriented to person, place, time, situation, Appropriate for age. Respiratory: No deficits noted. Airway is patent Respiratory effort is even, unlabored, Respiratory pattern is regular, symmetrical. Historical: - Allergies: 12:32 No Known Allergies; cm10 - PMHx: 12:32 Enlarged Heart; cm10 - PSHx: 12:32 section; cm10 - Immunization history:: Adult Immunizations up to date. - Infectious Disease History:: Denies. - Social history:: Smoking status: Patient denies any tobacco usage or history of. Screenin:34 [facility] ED Fall Risk Assessment (Adult) History of falling in the last 3 months, cm10 including since admission No falls in past 3 months (0 pts) Confusion or Disorientation No (0 pts) Intoxicated or Sedated No (0 pts) Impaired Gait No (0 pts) Mobility Assist Device Used No (0 pt) Altered Elimination No (0 pt) Score/Fall Risk Level 0 - 2 = Low Risk Oriented to surroundings, Maintained a safe environment, Hourly rounding (assess needs \T\ fall precautionary measures) done. Abuse screen: Denies threats or abuse. Denies injuries from another. Nutritional screening: No deficits noted. Tuberculosis screening: No symptoms or risk factors identified. Vital Signs: 12:31 BP 137 / 94; Pulse 80; Resp 15; Temp 98.6; Pulse Ox 100% ; Pain 8/10; cm10 12:31 Pain Scale: Adult cm10 ED Course: 12:26 Patient arrived in ED. cj3 12:32 Jr Chacon DO is Attending Physician. ms3 12:32 Triage completed. cm10 12:34 Arm band placed on right wrist. Patient placed in waiting room. cm10 12:34 Patient has correct armband on for positive identification. Provided Education on: ER cm10 process and procedures.. 12:34 No provider procedures requiring assistance completed. Patient did not have IV access cm10 during this emergency room visit. 12:35 Jaguar Morrison DDS is Referral Physician. ms3 Administered Medications: No medications were administered Medication: 12:34 VIS not applicable for this client. cm10 Outcome: 12:36 Discharge ordered by MD. ms3 12:49 Discharged to home ambulatory, cm10 12:49 Condition: good 12:49 Discharge instructions given to patient, Instructed on discharge instructions, follow up and referral plans. medication usage, Demonstrated understanding of instructions, follow-up care, medications, Prescriptions given X 1, 12:49 Patient left the ED. cm10 Signatures: Jr Chacon DO DO ms3 Roberta Perez, RN RN cm10 Chery De Santiago cj3
--- NOTE | 2024-11-21 12:37 | EDPHYS ---
Physician Documentation [facility] Name: aMrva De Santiago Age: 34 yrs Sex: Female : 1990 Arrival Date: 11/21/2024 Time: 12:21 Bed IW3 Private MD: ED Physician Jr Chacon HPI: 11/21 14:50 This 34 yrs old Black Female presents to ER via Ambulatory with complaints of Toothache.mt3 14:50 34-year-old female with past medical history of enlarged heart presents to the [facility] emergency department for bilateral upper tooth pain has been ongoing for 2 months. Patient states symptoms became worse last night. Patient rates pain 8/10. She denies any alleviating or inciting factors.. Historical: - Allergies: 12:32 No Known Allergies; cm10 - PMHx: 12:32 Enlarged Heart; cm10 - PSHx: 12:32 section; cm10 - Immunization history:: Adult Immunizations up to date. - Infectious Disease History:: Denies. - Social history:: Smoking status: Patient denies any tobacco usage or history of. ROS: 14:50 Constitutional: Negative for fever, and chills. Cardiovascular: Negative for chest ms3 pain, and palpitations. Respiratory: Negative for shortness of breath, cough, wheezing, and pleuritic chest pain, Abdomen/GI: Negative for abdominal pain, nausea, vomiting, diarrhea, and constipation, MS/Extremity: Negative for injury and deformity, 14:50 ENT: Positive for Upper dental pain, Exam: 14:50 Constitutional: This is a well developed, well nourished patient who is awake, alert, ms3 and in no acute distress. Cardiovascular: Regular rate and rhythm with a normal S1 and S2. No gallops, murmurs, or rubs. Normal PMI, no JVD. No pulse deficits. Respiratory: Lungs have equal breath sounds bilaterally, clear to auscultation and percussion. No rales, rhonchi or wheezes noted. No increased work of breathing, no retractions or nasal flaring. Abdomen/GI: Soft, non-tender, with normal bowel sounds. No distension or tympany. No guarding or rebound. No evidence of tenderness throughout. 14:50 ENT: Dental exam: dental caries, that is severe, specifically in the upper right central Incisor (#8) and upper left lateral incisor (#10), gum swelling, that is mild, specifically in the upper right central Incisor (#8) and upper left lateral incisor (#10), pain, that is severe, specifically in the upper right central Incisor (#8) and upper left lateral incisor (#10), Vital Signs: 12:31 BP 137 / 94; Pulse 80; Resp 15; Temp 98.6; Pulse Ox 100% ; Pain 8/10; cm10 12:31 Pain Scale: Adult cm10 MDM: 12:35 Medical Screening Exam initiated ms3 14:50 Differential diagnosis: dental caries, gingivitis, dental abscess. Data reviewed: vital ms3 signs, nurses notes, and as a result, I will discharge patient. I considered the following discharge prescriptions or medication management in the emergency department I discussed and recommended Over The Counter medications, See prescriptions. Counseling: I had a detailed discussion with the patient and/or guardian regarding the historical points, exam findings, and any diagnostic results supporting the discharge/admit diagnosis, the need for outpatient follow up, to return to the emergency department if symptoms worsen or persist or if there are any questions or concerns that arise at home. ED course: Discussed physical exam findings with patient. Patient given prescription for penicillin V. Discussed [id number] Tylenol and ibuprofen use for pain. No signs of Ludewig's angina present. Patient to follow-up with Dr. Mar or in 2 to 3 days. Patient understands agrees with plan. All questions were answered. Return precautions discussed include worsening symptoms, or any other concerns. Administered Medications: No medications were administered Disposition Summary: 11/21/24 12:36 Discharge Ordered Notes: Location: Home ms3 Condition: Stable ms3 Diagnosis - Dental infection ms3 - Tooth pain ms3 Followup: ms3 - With: Jaguar Morrison DDS - When: 2 - 3 days - Reason: Recheck today's complaints Discharge Instructions: - Dental Pain, [id number] ms3 - Dental Caries, Adult, [id number] ms3 - Discharge Summary Sheet cm10 Forms: - Medication Reconciliation Form ms3 - Antibiotic Education ms3 - Prescription Opioid Use ms3 - Patient Portal Instructions ms3 - Leadership Thank You Letter ms3 - Work release form cm10 Prescriptions: - penicillin V potassium 500 mg Oral tablet - take 1 tablet ORAL route every 6 hours for 10 days; 40 tablet; Refills: 0, ms3 Product Selection Permitted Signatures: Jr Chacon DO DO ms3 Roberta Perez, RN RN cm10
[2024-11-21 14:08] VITALS: BP 137/94; TEMP 98.6; O2SAT 100
== END 2024-11-21 12:49 | disposition home or self-care (01) ==
LOC: ER 12:21
DX: K04.7 Periapical abscess without sinus (principal)
CPT/HCPCS: 99283